=== PATIENT | male | born 1950 | race Caucasian/White ===

== ENCOUNTER → 2016-06-19 | Outpatient (CLI) | payer BC ==
[~2016-06-19] MED LIST: BACT800T5 PO; CIPR500T89 PO; PERC5TAB6 PO; PERCOCET PO
== END ==
LOC: M SMT 11:28
PROVIDERS: ATTEND Urology
DX: Z85.46 Personal history of malignant neoplasm of prostate (principal); Z96.89 Presence of other specified functional implants

== ENCOUNTER → 2016-12-16 | Outpatient (CLI) | payer BC ==
[~2016-12-16] MED LIST changes: +CIPR-249 PO; -CIPR500T89 PO; +NORCOTAB PO; +PERC5TAB12 PO; -PERC5TAB6 PO
== END ==
LOC: M SMT 10:25
PROVIDERS: ATTEND Urology
DX: C61 Malignant neoplasm of prostate (principal)

== ENCOUNTER 2017-01-02 11:51 | Emergency (ER) | payer BC ==
[~2017-01-02] VITALS: Ht 182.9 cm; Wt 106.8 kg
[~2017-01-02 11:51] MED LIST changes: -NORCOTAB PO
[2017-01-02] MEDS ORDERED: NS 1,000 ML IV ONE (13:45)
[2017-01-02 14:32] LABS: BASO % 0.2 % (0.0-1.0); EOS % 0.1 % (0.0-3.0); LARGE UNSTAINED CELL # 0.1 K/mm3 (0.0-0.4); LARGE UNSTAINED CELL % 0.8 % (0.0-4.0); LYMPH # 2.4 K/mm3 (1.5-4.5); LYMPH % 15.9 % (24.0-44.0); MEAN CORPUSCULAR HEMOGLOBIN 28.6 pg (27.0-33.0); MEAN CORPUSCULAR HGB CONC 34.7 g/dl (32.0-36.5); MEAN CORPUSCULAR VOLUME 82.5 fl (80.0-96.0); MONO # 0.4 K/mm3 (0.0-0.8); MONO % 2.9 % (0.0-5.0); NEUTROPHILS % 80.1 % (36.0-66.0); PLATELET COUNT, AUTOMATED 257 k/mm3 (150-450); RED CELL DISTRIBUTION WIDTH 13.4 % (11.5-14.5); WHITE BLOOD COUNT 14.9 K/mm3 (4.0-10.0)
[2017-01-02 14:44] LABS: ALBUMIN 4.1 GM/DL (3.2-5.2); ALBUMIN/GLOBULIN RATIO 1.37 (1.00-1.93); BILIRUBIN,DIRECT 0.2 MG/DL (0.0-0.2); BILIRUBIN,TOTAL 1.1 MG/DL (0.2-1.0); CREATININE FOR GFR 1.35 MG/DL (0.70-1.30); GLOMERULAR FILTRATION RATE 56.6 (>49); POTASSIUM SERUM 4.5 MEQ/L (3.5-5.1); TOTAL PROTEIN 7.1 GM/DL (6.4-8.2)
[2017-01-02] MEDS ORDERED: NORCOTAB PO (14:56)
[2017-01-02] MEDS ORDERED: CIPR-249 PO (14:56)
--- NOTE | 2017-01-02 15:08 | REP ---
CT abdomen and pelvis without IV or oral contrast: Renal stone protocol. History: Flank pain on the right side. Comparison study: December 20, 2013. CT findings: Preliminary digital trains service conductor radiograph demonstrates opaque gallstones in the right upper quadrant and a penile implant prosthesis in the perineum. The lung bases are clear on axial CT images. The liver and the spleen are normal in size and homogeneous in texture. Calcified gallstones are visible in the gallbladder. Gallbladder is not dilated. No pericholecystic inflammation is seen. The pancreas is unremarkable. No adrenal lesion is seen on either side. There is a cyst in the lower pole of the left kidney posteriorly. This measures 2.7 cm in greatest diameter. It is larger than on the prior CT study in 2013. There is an intrarenal calculus in the upper pole of the right kidney measuring 4 mm in greatest diameter. There is mild right-sided hydronephrosis and hydroureter. There is a tiny 3 mm distal ureteral calculus in the intramural segment of the right ureterovesical junction. Urinary bladder is otherwise intact. There is left colonic diverticulosis without CT evidence of diverticulitis. Impression: 3 mm right distal ureteral calculus in the ureterovesical junction with mild right-sided hydronephrosis and hydroureter. 4 mm intrarenal calculus upper pole right kidney. 2.7 cm left renal cyst. Left colon diverticulosis. Cholelithiasis. Signed by Omari Zheng MD 01/03/2017 10:04 A
[2017-01-02 15:16] VITALS: BP 148/99
== END 2017-01-02 15:17 | disposition home or self-care (01) ==
LOC: M ED 11:51
DX: N10 Acute pyelonephritis (principal); N20.1 Calculus of ureter; N13.30 Unspecified hydronephrosis; K80.20 Calculus of gallbladder without cholecystitis without obstruction; R73.09 Other abnormal glucose; R11.2 Nausea with vomiting, unspecified; Z87.442 Personal history of urinary calculi; Z85.46 Personal history of malignant neoplasm of prostate; Z86.73 Personal history of transient ischemic attack (TIA), and cerebral infarction without residual deficits

== ENCOUNTER → 2018-03-19 | Outpatient (CLI) | payer BC ==
[2018-03-19 14:41] LABS: PROSTATIC SPECIFIC AG MONITOR < 0.0 NG/ML (< 4.0)
== END ==
LOC: M SMT 08:15
DX: C61 Malignant neoplasm of prostate (principal)
CPT/HCPCS: 84153

== ENCOUNTER 2018-04-06 08:55 | Day surgery (SDC) | payer BC ==
[2018-04-06] MEDS: NS 1,000 ML IV (06:45)
[2018-04-06] MEDS ORDERED: PROPOFOL 200 MG/20 ML VIAL As Ordered (09:56)
[2018-04-06] MEDS ORDERED: LIDOCAINE 2% INJ 100 MG/5 ML SDV (FOR ANES.) As Ordered (09:56)
== END 2018-04-06 10:57 | disposition home or self-care (01) ==
LOC: M OPP 08:55
DX: Z86.010 Personal history of colon polyps (principal); K64.0 First degree hemorrhoids; K57.30 Diverticulosis of large intestine without perforation or abscess without bleeding; D12.2 Benign neoplasm of ascending colon
CPT/HCPCS: 45385

== ENCOUNTER → 2018-09-15 | Outpatient (CLI) | payer BC ==
[~2018-09-15] MED LIST changes: +HYDR-3715 PO
== END ==
LOC: M SMT 08:41
PROVIDERS: ATTEND Urology
DX: C61 Malignant neoplasm of prostate (principal)

== ENCOUNTER → 2019-03-12 | Outpatient (CLI) | payer BC | LOC: M SMT 08:32 | PROVIDERS: ATTEND Urology | DX: C61 Malignant neoplasm of prostate (principal) ==

== ENCOUNTER → 2020-07-24 | Outpatient (REF) | payer BC ==
[2020-07-24 18:36] LABS: APPEARANCE, URINE CLEAR (CLEAR); BACTERIA, URINE AUTO NEGATIVE (NEGATIVE); BILIRUBIN, URINE AUTO NEGATIVE (NEGATIVE); BLOOD, URINE BLOOD NEGATIVE (NEGATIVE); CALCIUM OXALATE CRYSTALS SMALL; COLOR, URINE YELLOW (YELLOW); GLUCOSE, URINE (UA) AUTO NEGATIVE (NEGATIVE); KETONE, URINE AUTO NEGATIVE (NEGATIVE); LEUKOCYTE ESTERASE, URINE AUTO NEGATIVE (NEGATIVE); MUCUS, URINE SMALL (NEGATIVE); NITRITE, URINE AUTO NEGATIVE (NEGATIVE); PROTEIN, URINE AUTO NEGATIVE (NEGATIVE); RBC, URINE AUTO 1 /HPF (0-3); SPECIFIC GRAVITY URINE AUTO 1.018 (1.002-1.035); SQUAMOUS EPITHELIAL CELL UR AU 0 /HPF (0-6); UROBILINOGEN, URINE AUTO 0.2 mg/dL (0.0-2.0); WBC, URINE AUTO 0 /HPF (0-3)
== END ==
LOC: M SMT 17:09
PROVIDERS: ATTEND Urology
DX: R30.0 Dysuria (principal)

== ENCOUNTER → 2021-02-14 | Outpatient (CLI) | payer BC | LOC: M PLALAB 15:20 | PROVIDERS: ATTEND Urology | DX: C61 Malignant neoplasm of prostate (principal) ==

== ENCOUNTER 2021-03-14 14:14 | Inpatient (IN) | payer BC ==
[~2021-03-14] VITALS: Ht 180.3 cm; Wt 106.8 kg
[~2021-03-14 14:14] MED LIST changes: +BARICITINIB 2MG TABLET (OLUMIANT) FOR EUA PO SCH
--- OUTSIDE RECORDS SUMMARY | 2021-03-14 14:23 | CCD ---
Author Author [facility] Organization [facility] Address Unknown Phone Unavailable Care Team Providers Care Lithographic Photographer Apprentice Name Role Phone Bjorn Cristian Unavailable PROBLEMS Type Condition ICD9-CM Code [id number] Code Onset Dates Condition S tatus W/U Status Risk SNOMED Code Notes Problem Microhematuria 599.72 Active confirmed 0006 Problem Male erectile dysfunction, unspecified N52.9 A ctive confirmed 120957306 Problem Prostate cancer C61 Active confirmed 2549 28165 Problem Acquired absence of organ, other parts of urinary tract V4 5.74 Active confirmed Problem Cancer - Prostate 185 Active confirmed 39 8538207 Problem Erectile dysfunction following radical prostatectomy N52.31 Active confirmed 156221025715071 Problem History of penile implant Z96.89 Active confirmed [id number] ALLERGIES No Known Allergies ENCOUNTERS from 1950 to 2021-02-20 Encounter Location Date Provider Diagnosis [facility] [address] [facility] [address] [phone] [place] [address] 15 Feb, 2021 Cristian Milan Prostate cancer C61 and Erectile dysfunc tion following radical prostatectomy N52.31 IMMUNIZATIONS Vaccine Route Administration Date Status Influenza 6mo & up Fluzone Unknown Jun 29, 2015 Refus ed Influenza 6mo & up Fluzone Unknown Mar 20, 2015 Refus ed Influenza 6mo & up Fluzone Unknown August 11, 2014 Refus ed Influenza 6mo & up Fluzone Unknown Jun 16, 2014 Refus ed SOCIAL HISTORY Tobacco Use: Social History Observation Description Date Details (start date - stop date) Never Smoker Sex Assigned At : Social History Observation Description Sex Assigned At Unknown Sexual Hx: Question Answer Notes Had sex in the last 12 months (vaginal, oral, or anal)? Yes Have you ever had an STD? No Prevention Strategies discussed: Other with Women only Use protection? No Tobacco Use: Question Answer Notes Are you a: never smoker REASON FOR REFERRAL No Information VITAL SIGNS Weight 244 lbs Feb, Weight-kg 110.68 kg Feb, Height 60 in Feb, BMI 47.65 kg/m2 Feb, Heart Rate 67 /min Feb, Respiratory Rate 18 /min Feb, Temperature 97.6 degrees Fahrenheit Feb, Oximetry 97 Feb, Blood pressure systolic 128 mm Hg Feb, Blood pressure diastolic 76 mm Hg Feb, MEDICATIONS Medication SIG (Take, Route, Frequency, Duration) Notes Start Da te End Date Status Tylenol 325 MG 2 capsules as needed Orally every 6 hrs Not-Taking ErecAid Classic as directed Jul, Not-Ta karen Cipro 500 MG 1 tablet Orally every 12 hrs Not-Taking PROCEDURES No Information RESULTS No Results REASON FOR VISIT HX OF PROSTATE CANCER MEDICAL (GENERAL) HISTORY Type Description Date Medical History Hematuria Medical History Hypercholesterolemia Medical History Pre-diabetes Medical History Benign neoplasm colon Medical History Prostate Ca Surgical History Right ankle tendon repair 1974 Surgical History Colonoscopy x3 Surgical History Prostatectomy 06/2014 Surgical History Penile implant 02/28/2016 Hospitalization History surgery related Goals Section No Information Health Concerns No Information MEDICAL EQUIPMENT No Information MENTAL STATUS No Information FUNCTIONAL STATUS No Information ASSESSMENTS Encounter Date Diagnosis Assessment Notes Treatment Notes Treatm ent Clinical Notes Feb, Prostate cancer (ICD-10 - C61) - PSA results discussed - check PSA in 1 yr - f/u in 1 yr Feb, Erectile dysfunction followi ng radical prostatectomy (ICD-10 - N52.31) PLAN OF TREATMENT Treatment Notes Assessment Notes Clinical Notes Prostate cancer - PSA results discus sed- check PSA in 1 yr- f/u in 1 yr Future Test Test Name Order Date PSA MONITOR (HX PROSTATE CA/ABNORMAL PSA) [id number] Next Appt Details 1 Year w/ PSA prior Reason:prostate canc er Provider Name:Cristian Ignacio Bjorn, 03:00:00 PM, [address], , [place], [address], Follow Up:1 Year w/ PSA priorprostate cancer Insurance Providers Payer Name Payer Address Payer Phone Insured Name Patient Relati onship to Insured Coverage Start Date Coverage End Date MIHAELA TORRES [facility] [id number] [facility] [place] [address] CALL,KIRSTIE GALARZA self
--- OUTSIDE RECORDS SUMMARY | 2021-03-14 14:23 | CCD | Continuity of Care Document ---
Author Author Reinaldo Hoyt MD Organization Unknown Address [address] [facility] [address] [place] [address] Phone [phone] Care Team Providers Care Snow Shoveler Name Role Phone Aneesh Hoyt JR, MD AUTM Unavailable Demetrius Siegel MD AUTM [phone] [facility] [place] AUTM Problems Active Problems Provider Date Pure hypercholesterolemia Aneesh Hoyt MD Onset: 12/22 Benign neoplasm of colon Aneesh Hoyt MD Onset: 2010 Family history of malignant neoplasm of gastrointestin al tract Aneesh Hoyt MD Onset: 12/22/2010 Abnormal glucose level Aneesh Hoyt MD Onset: 12/31/19 13 Malignant tumor of prostate Aneesh Hoyt MD Onset: Social History Type Date Description Comments Sex Unknown ETOH Use Occasionally consumes beer ETOH Use Occasionally consumes liquor Tobacco Use Start: Unknown Patient has never smoked Allergies and adverse reactions Description No Known Drug Allergies Medications Active Medications SIG Qnty Indications Ordering Provide r Date No OTC Meds Aneesh Hoyt MD Immunizations CPT Code Status Date Vaccine Lot # [id number] Refused 02/09/2021 Influenza Vaccin e Quadrivalent Preser/Antibiotic Free Im Use 25602 Refused 02/04/2020 Influenza Vaccin e Quadrivalent Preser/Antibiotic Free Im Use Vital Signs Date Vital Result Comment 02/09/2021 7:59am BP Systolic 136 mmHg BP Diastolic 86 mmHg Heart Rate 64 /min Height 70.25 inches 5'10.25" Weight 242.00 lb O2 % BldC Oximetry 98 % BMI (Body Mass Index) 34.5 kg/m2 02/04/2020 8:19am BP Systolic 135 mmHg BP Diastolic 82 mmHg Heart Rate 62 /min Height 70.25 inches 5'10.25" Weight 231.00 lb steel toes O2 % BldC Oximetry 97 % BMI (Body Mass Index) 32.9 kg/m2 Results Test Acquired Date Facility Test Result H/L Range Note Laboratory test finding 02/09/2021 [facility] Desktop Support Technician: [place] [address] [phone] PSA <0.13 ng/mL <4.00 1 Complete Blood Count 02/09/2021 [facility] Desktop Support Technician: [place] [address] [phone] WBC 9.9 x10*3/UL 4.1 - 10.9 RBC 5.79 x10*6/UL 4.20 - 6.30 Hemoglobin 16.2 g/dL 12.0 - 18.0 Hematocrit 46.9 % 37.0 - 51.0 MCV 81.0 fL 80.0 - 97.0 MCH 28.0 pg 26.0 - 32.0 MCHC 34.5 g/dL 31.0 - 38.0 RDW 14.2 % High 11.6 - 13.7 PLT 240 x10*3/UL 140 - 440 MPV 8.9 FL 7.8 - 11.0 Lymph % 42.2 % 10.0 - 58.5 Mid % 6.1 % 1.7 - 9.3 Neut % 51.7 % 37.0 - 92.0 Lymph # 4.1 x10*3/UL 0.6 - 4.1 Mid # 0.7 x10*3/UL High 0.1 - 0.6 Neut # 5.1 x10*3/UL 2.0 - 7.8 Comprehensive Chem Profile 02/09/2021 [facility] [place] Desktop Support Technician: [place] [address] [phone] Glucose 97 mg/dL 74 - 99 2 BUN 22 mg/dL High 7 - 18 Creatinine 1.3 mg/dL 0.6 - 1.3 Sodium 141 mEq/L 136 - 145 Potassium 4.8 mEq/L 3.5 - 5.1 Chloride 105 mEq/L 98 - 107 Carbon Dioxide 30 mEq/L 21 - 32 Calcium 9.3 mg/dL 8.5 - 10.1 Alk. Phosphatase 71 mg/dL 46 - 116 Total Bilirubin 0.9 mg/dL 0.2 - 1.0 Ast (Sgot) 15 U/L 15 - 37 Alt (SGPT) 28 U/L 12 - 78 Albumin 3.9 g/dL 3.4 - 5.0 Total Protein 6.6 g/dL 6.4 - 8.2 A/G Ratio 1.44 CALC 1.00 - 1.90 GFR 55 mL/min Low >60 GFR >= 60 mL/min >60 3 Lipid Profile 02/09/2021 [facility] Desktop Support Technician: [place] [address] [phone] Cholesterol 179 mg/dL 131 - 200 Triglycerides 110 mg/dL 30 - 150 HDL Cholesterol 44 mg/dL 35 - 60 LDL (Calculated) 113 CALC 50 - 159 1 This assay was performed on the Siemens Dimension EXL using the B- Galactosidase/CPRG methodology and should not be compared interchangeably with other methods. The PSA should not be used alone as a screening test for the presence or absence of malignant disease. 2 100-125 mg/dL PRE-DIABET ES/FASTING >126 mg/dL DIABETES/FASTING 3 CHRONIC KIDNEY DISEASE STAGI NG PER NKF STAGE I & II GFR >= 60 NORMAL TO MILDLY DECREASED STAGE III GFR 30-59 MODERATELY DECREASED STAGE IV GFR 15-29 SEVERELY DECREASED STAGE V GFR <15 VERY LITTLE GFR LEFT ESRD GFR <15 ON MANAGER JAVA Procedures Date Code Description Status 02/09/2021 35954 Est Prevent Med (65Yrs&Ovr) Comp leted 02/09/2021 50916 EKG/Interpretation & Report Comp leted 04/06/2018 [id number] Colonoscopy Completed 02/08/2015 [id number] Colonoscopy Completed 07/31/2012 [id number] Colonoscopy Completed 04/04/2010 [id number] Colonoscopy Completed Medical Devices Description No Information Available Encounters Type Date Location Provider Dx Diagnosis Office Visit 02/09/2021 8:00a [facility] Aneesh Hoyt MD Z00.01 Encounter for general adult medical exam w abnormal findings R73.09 Other abnormal glucose E78.00 Pure hypercholesterolemia, u nspecified C61 Malignant neoplasm of prosta te N52.9 Male erectile dysfunction, u nspecified Z80.0 Family history of malignant neoplasm of digestive organs Z86.010 Personal history of colonic polyps E66.09 Other obesity due to excess calories Z68.34 Body mass index [BMI] 34.0-3 4.9, adult Z13.89 Encounter for screening for other disorder Assessments Date Code Description Provider 02/09/2021 Z00.01 Encounter for genera l adult medical examination with abnormal findings Aneesh Hoyt MD 02/09/2021 R73.09 Other abnormal glucose Aneesh Hoyt MD 02/09/2021 E78.00 Pure hypercholesterolemia, unspe cified Aneesh Hoyt MD 02/09/2021 C61 Malignant neoplasm of prostate C tim Hoyt MD 02/09/2021 N52.9 Male erectile dysfunction, unspe cified Aneesh Hoyt MD 02/09/2021 Z80.0 Family history of malignant neop lasm of digestive organs Aneesh Hoyt MD 02/09/2021 Z86.010 Personal history of colonic poly ps Aneesh Hoyt MD 02/09/2021 E66.09 Other obesity due to excess xena tania Aneesh Hoyt MD 02/09/2021 Z68.34 Body mass index [BMI] 34.0-34.9, adult Aneesh Hoyt MD 02/09/2021 Z13.89 Encounter for screening for othe r disorder Aneesh Hoyt MD Plan of Treatment Future Appointment(s):* 02/15/2022 8:00 am - Aneesh Hoyt MD at [facility] 02/09/2021 - Aneesh Hoyt MD* Z00.01 Encounter for general adult medical examination with abnormal findings * R73.09 Other abnormal glucose * E78.00 Pure hypercholesterolemia, unspecified * C61 Malignant neoplasm of prostate * N52.9 Male erectile dysfunction, unspecified * Z80.0 Family history of malignant neoplasm of digestive organs * Z86.010 Personal history of colonic polyps * E66.09 Other obesity due to excess calories * Z68.34 Body mass index [BMI] 34.0-34.9, adult * Z13.89 Encounter for screening for other disorder Functional Status Description No Information Available Mental Status Description No Information Available Referrals Description No Information Available
--- OUTSIDE RECORDS SUMMARY | 2021-03-14 14:23 | CCD | Continuity of Care Document ---
Author Author Reinaldo Hoyt MD Organization Unknown Address [address] [facility] [address] [place] [address] Phone [phone] Care Team Providers Care Dish Room Worker Name Role Phone Aneesh Hoyt JR, MD AUTM Unavailable Demetrius Siegel MD AUTM [phone] [facility] [place] AUTM Problems Active Problems Provider Date Pure [...] CPT Code Status Date Vaccine Lot # [id number] Refused 02/09/2021 Influenza Vaccin e Quadrivalent Preser/Antibiotic Free Im Use 57984 Refused 02/04/2020 Influenza Vaccin e Quadrivalent Preser/Antibiotic Free Im Use Vital Signs Date Vital Result Comment 02/09/2021 7:59am BP Systolic 152 mmHg BP Diastolic 82 mmHg Heart Rate 64 /min Height 70.25 inches 5'10.25" Weight 242.00 lb O2 % BldC Oximetry 98 % BMI (Body Mass Index) 34.5 kg/m2 02/04/2020 8:19am BP Systolic 135 mmHg BP Diastolic 82 mmHg Heart Rate 62 /min Height 70.25 inches 5'10.25" Weight 231.00 lb steel toes O2 % BldC Oximetry 97 % BMI (Body Mass Index) 32.9 kg/m2 Results Description No Information Available Procedures Date Code Description Status 04/06/2018 [id number] Colonoscopy Completed 02/08/2015 [id number] Colonoscopy Completed 07/31/2012 [id number] Colonoscopy Completed 04/04/2010 [id number] Colonoscopy Completed Medical Devices Description No Information Available Encounters Description No Information Available Assessments Description No Information Available Plan of Treatment No Information Available Functional Status Description No Information Available Mental Status Description No Information Available Referrals Refer to Reason for Referral Status Appt Date Zi Up MD CONSULT FOR SCREENING COLONOSCOPY Create d [address] [facility] [address] [phone]
--- OUTSIDE RECORDS SUMMARY | 2021-03-14 14:23 | CCD ---
Author Author [facility] Organization [facility] Address Unknown Phone Unavailable Care Team Providers Care Pipe Bender Name Role Phone Sandy Hoyt MD Unavailable Unavailable Sandy Hoyt MD Unavailable Unavailable Sandy Hoyt MD Unavailable Unavailable Sandy Hoyt MD Unavailable Unavailable Sandy Hoyt MD Unavailable Unavailable Sandy Hoyt MD Unavailable Unavailable Sandy Hoyt MD Unavailable Unavailable Sandy Hoyt MD Unavailable Unavailable Sandy Hoyt MD Unavailable Unavailable Sandy Hoyt MD Unavailable Unavailable Sandy Hoyt MD Unavailable Unavailable Sandy Hoyt MD Unavailable Unavailable Sandy Hoyt MD Unavailable Unavailable Sandy Hoyt MD Unavailable Unavailable Sandy Hoyt MD Unavailable Unavailable Sandy Hoyt MD Unavailable Unavailable Sandy Hoyt MD Unavailable Unavailable Sandy Hoyt MD Unavailable Unavailable Sandy Hoyt MD Unavailable Unavailable Sandy Hoyt MD Unavailable Unavailable Sandy Hoyt MD Unavailable Unavailable Sandy Hoyt MD Unavailable Unavailable Sandy Hoyt MD Unavailable Unavailable Sandy Hoyt MD Unavailable Unavailable Sandy Hoyt MD Unavailable Unavailable Sandy Hoyt MD Unavailable Unavailable Sandy Hoyt MD Unavailable Unavailable GuaynaboSandy MD Unavailable Unavailable GuaynaboSandy MD Unavailable Unavailable GuaynaboSandy MD Unavailable Unavailable GuaynaboSandy MD Unavailable Unavailable GuaynaboSandy MD Unavailable Unavailable EvelinaSandy MD Unavailable Unavailable GuaynaboSandy MD Unavailable Unavailable GuaynaboSandy MD Unavailable Unavailable EvelinaSandy MD Unavailable Unavailable GuaynaboSandy MD Unavailable Unavailable GuaynaboSandy MD Unavailable Unavailable GuaynaboSandy MD Unavailable Unavailable EvelinaSandy MD Unavailable Unavailable GuaynaboSandy MD Unavailable Unavailable EvelinaSandy MD Unavailable Unavailable EvelinaSandy MD Unavailable Unavailable EvelinaSandy MD Unavailable Unavailable EvleinaSandy MD Unavailable Unavailable EvelinaSandy MD Unavailable Unavailable EvelinaSandy MD Unavailable Unavailable GuaynaboSandy MD Unavailable Unavailable EvelinaSandy MD Unavailable Unavailable GuaynaboSandy MD Unavailable Unavailable GuaynaboSandy MD Unavailable Unavailable EvelinaSandy MD Unavailable Unavailable EvelinaSandy MD Unavailable Unavailable EvelinaSandy MD Unavailable Unavailable EvelinaSandy MD Unavailable Unavailable EvelinaSandy MD Unavailable Unavailable EvelinaSandy MD Unavailable Unavailable GuaynaboSandy MD Unavailable Unavailable EvelinaSandy MD Unavailable Unavailable EvelinaSandy MD Unavailable Unavailable GuaynaboSandy MD Unavailable Unavailable EvelinaSandy doshi MD Unavailable Unavailable EvelinaSandy doshi MD Unavailable Unavailable GuaynaboSandy MD Unavailable Unavailable EvelinaSandy MD Unavailable Unavailable GuaynaboSandy doshi MD Unavailable Unavailable EvelinaSandy MD Unavailable Unavailable EvelinaSandy doshi MD Unavailable Unavailable GuaynaboSandy doshi MD Unavailable Unavailable GuaynaboSandy doshi MD Unavailable Unavailable GuaynaboSandy MD Unavailable Unavailable EvelinaSandy MD Unavailable Unavailable EvelinaSandy MD Unavailable Unavailable EvelinaSandy MD Unavailable Unavailable GuaynaboSandy MD Unavailable Unavailable EvelinaSandy MD Unavailable Unavailable GuaynaboSandy MD Unavailable Unavailable EvelinaSandy MD Unavailable Unavailable EvelinaSandy MD Unavailable Unavailable EvelinaSandy MD Unavailable Unavailable EvelinaSandy MD Unavailable Unavailable GuaynaboSandy MD Unavailable Unavailable GuaynaboSandy MD Unavailable Unavailable Sandy Hoyt MD Unavailable Unavailable Sandy Hoyt MD Unavailable Unavailable Sandy Hoyt MD Unavailable Unavailable Re-disclosure Warning The records that you are about to access may contain information from federally-assisted alcohol or drug abuse programs. If such information is present, then the following federally mandated warning applies: This information has been disclosed to you from records protected by federal confidentiality rules (42 CFR part 2). The federal rules prohibit you from making any further disclosure of this information unless further disclosure is expressly permitted by the written consent of the person to whom it pertains or as otherwise permitted by 42 CFR part 2. A general authorization for the release of medical or other information is NOT sufficient for this purpose. The Federal rules restrict any use of the information to criminally investigate or prosecute any alcohol or drug abuse patient.The records that you are about to access may contain highly sensitive health information, the redisclosure of which is protected by Article 27-F of the [facility] Public Health law. If you continue you may have access to information: Regarding HIV / AIDS; Provided by facilities licensed or operated by the [facility] Office of Mental Health; or Provided by the [facility] Office for People With Developmental Disabilities. If such information is present, then the following [facility] mandated warning applies: This information has been disclosed to you from confidential records which are protected by state law. State law prohibits you from making any further disclosure of this information without the specific written consent of the person to whom it pertains, or as otherwise permitted by law. Any unauthorized further disclosure in violation of state law may result in a fine or mcfp sentence or both. A general authorization for the release of medical or other information is NOT sufficient authorization for further disc losure. Family History Family Member Name Family Member Gender Family Member Status Date o f Status Description Data Source(s) Unknown Female Problem [facility] ([facility]) Unknown Female Problem [facility] ([facility]) Unknown Female Problem MED[facility] ([facility]) Encounters Encounter Providers Location Date Indications Data Source(s ) [place] [address] [facility] [address] 02/16/2021 12:00:00 AM EDT eCW1 ([facility]) Outpatient Attender: Aneesh Danielle 1 08:00:00 AM EDT MEDENT ([facility] ) Unknown [address] [facility] [place] [address] 07/25/2020 12:00:00 AM EDT eCW1 ([facility]) Unknown [address] [facility] [place] [address] 07/24/2020 12:00:00 AM EDT eCW1 ([facility]) [facility] [address] [place] [address] 03/20/2020 12:00:00 AM EST eCW1 ([facility]) Outpatient [address] [facility] [address] 02/17/2020 12:00:00 AM EDT eCW1 ([facility]) Outpatient Attender: Aneesh Danielle 1 08:20:00 AM EDT MEDENT ([facility] ) Immunizations Vaccine Date Status Description Data Source(s) Influenza, injectable, MDCK, preservative free, apryl valent 02/09/2021 08:01:00 AM EDT completed [facility] Influenza, injectable, MDCK, preservative free, apryl valent 02/04/2020 08:21:00 AM EDT completed MEDENT ([facility]) Medications No Information Insurance Providers Payer name Policy type / Coverage type Policy ID Covered republican ID Covered republican's relationship to vega Policy Vega Plan Information BS [place] Medig[place] Part B [id number] Self [id number] [place] B [id number] Self BS [place] Tr[employer]/[place] Commercial [id number] Self 802 BS [place] [employer]/[place] Commercial [id number] Self [id number] [place] Tr[place] Commercial [id number] Self 802 BS [place] Trad/MoneyMail Commercial [id number] Self [id number] [place] Commercial [id number] Self [place] Commercial [id number] Self Y [id number] BS [place] Trad/Money[employer] Commercial [id number] Self 802 BS [place] [employer] Commercial [id number] Self [id number] BS [place] [employer] Commercial [id number] Self [id number] BS [place] Tr[employer] Commercial [id number] Self 802 [place]/307 [id number] SP [id number] [place] 302/307 [id number] SP [id number] [place] 302/307 [id number] SP [id number] [place] 302/307 [id number] SP [id number] [place] 302/307 [id number] SP [id number] [place] P[place] 302/307 [id number] SP [id number] [place] PPO 302/307 [id number] SP [id number] ANSI-Commercial [id number] BS [place] Trad/[employer] Commercial [id number] Self [id number] [place] PPO 302/307 [id number] SP [id number] MEDICAID UNAVAILABLE UNAVAILA BLE BCBS OF [place] 306/806 [id number] SP [id number] BS [place] Trad/MX Commercial [id number] Self 802 BCBS [place] 306/806 [id number] SP [id number] EXCELLUS BCBS B [id number] S [id number] [place] BCBS B [id number] S [id number] BC[place] 306/806 [id number] SP [id number] Problems, Conditions, and Diagnoses Code Display Name Description Problem Type Effective Dates Data Source(s) C61 Prostate cancer Prostate cancer Problem 02/16/2021 12:0 0:00 AM EDT eCW1 ([facility]) C61 Malignant tumor of prostate Malignant neoplasm of pros goins Problem 02/17/2020 12:00:00 AM EDT eCW1 ([facility]) Surgeries/Procedures Procedure Description Date Indications Data Source(s) ECG ROUTINE ECG W/LEAST 12 LDS W/I&R 02/09/2021 12:00: 00 AM EDT [facility]) PERIODIC PREVENTIVE MED EST PATIENT 65YRS&> 02/09/2021 12:00:00 AM EDT [facility] ([facility]) ECG ROUTINE ECG W/LEAST 12 LDS W/I&R 02/04/2020 12:00: 00 AM EDT [facility] ([facility]) Results ID Date Data Source [id number] 02/09/2021 08:31:00 AM EDT MEDENT ([facility]) Name Value Range Interpretation Code Description Data Charleen rce(s) Supporting Document(s) Prostate specific Ag [Mass/volume] in Serum or Plasma Laboratory test result [facility] ([facility]) This assay was performed on the Siemens Dimension EXL using the B- Galactosidase/CPRG methodology and should not be compared interchangeably with other methods. The PSA should not be used alone as a screening test for the presence or absence of malignant disease. ID Date Data Source [id number] 02/09/2021 08:30:00 AM EDT MEDENT ([facility]) Name Value Range Interpretation Code Description Data Charleen rce(s) Supporting Document(s) Cholesterol [Mass/volume] in Serum or Plasma 179 mg/dL 131-200 [facility] ([facility]) Cholesterol in HDL [Mass/volume] in Serum or Plasma 44 mg/dL 35-60 [facility] ([facility]) Triglyceride [Mass/volume] in Serum or Plasma 110 mg/dL 30-150 [facility] ([facility]) Cholesterol in LDL [Mass/volume] in Serum or Plasma by calcu lation 113 CALC 50-159 [facility] ([facility]) ID Date Data Source [id number] 02/09/2021 08:30:00 AM EDT MED[facility] ([facility]) Name Value Range Interpretation Code Description Data Charleen rce(s) Supporting Document(s) Glucose [Mass/volume] in Serum or Plasma 97 mg/dL 74-99 [facility] ([facility]) 100-125 mg/dL PRE-DIABETES/FASTING >126 mg/dL DIABETES/FASTING Creatinine 1.3 mg/dL 0.6-1.3 [facility]) Urea nitrogen [Mass/volume] in Serum or Plasma 22 mg/dL 7-18 [facility] ([facility]) Potassium [Moles/volume] in Serum or Plasma 4.8 meq/L 3.5-5.1 [facility] ([facility]) Sodium [Moles/volume] in Serum or Plasma 141 meq/L 136-145 [facility] ([facility]) Chloride [Moles/volume] in Serum or Plasma 105 meq/L 98-107 [facility] ([facility]) Calcium [Mass/volume] in Serum or Plasma 9.3 mg/dL 8.5-10.1 [facility] ([facility]) Carbon dioxide, total [Moles/volume] in Serum or Plasma 30 meq/L 21 -32 [facility] ([facility]) Alkaline phosphatase isoenzyme [Units/volume] in Serum or Pl asma 71 mg/dL 46-116 [facility] ([facility]) Total Bilirubin 0.9 mg/dL 0.2-1.0 [facility] ([facility]) Alanine aminotransferase [Enzymatic activity/volume] in Seru m or Plasma 28 U/L 12-78 [facility] ([facility]) Aspartate aminotransferase [Enzymatic activity/volume] in Serum or Plasma 15 U/L 15-37 [facility] ([facility] ) A/G Ratio 1.44 CALC 1.00-1.90 [facility]) Albumin [Mass/volume] in Serum or Plasma 3.9 g/dL 3.4-5.0 [facility] ([facility]) Proteinase 3 Ab [Units/volume] in Serum 6.6 g/dL 6.4-8.2 [facility] ([facility]) Glomerular filtration rate/1.73 sq M pre dicted among blacks [Volume Rate/Area] in Serum or Plasma by Creatinine-based formula (MDRD) Laboratory test result [facility]) <content>CHRONIC KIDNEY DISEASE STAGING PER NKF</content>
<content></content>
<content>STAGE I & II GFR >= 60 NORMAL TO MILDLY DECREASED</content>
<content>STAGE III GFR 30-59 MODERATELY DECREASED</content>
<content>STAGE IV GFR 15-29 SEVERELY DECREASED</content>
<content>STAGE V GFR <15 VERY LITTLE GFR LEFT</content>
<content>ESRD GFR <15 ON FORENSIC STRUCTURAL ENGINEER</content>
<content></content> Glomerular filtration rate/1.73 sq M pre dicted among non-blacks [Volume Rate/Area] in Serum or Plasma by Creatinine-based formula (MDRD) 55 mL/min [facility] ([facility]) ID Date Data Source [id number] 02/09/2021 08:30:00 AM EDT [facility] ([facility]) Name Value Range Interpretation Code Description Data Charleen rce(s) Supporting Document(s) Leukocytes [#/volume] in Blood by Automated count 9.9 x10*3/UL 4.1-10 .9 [facility]) Hemoglobin [Mass/volume] in Blood 16.2 g/dL 12.0-18.0 [facility] Erythrocytes [#/volume] in Blood by Automated count 5.79 x10*6/UL 4.2 0-6.30 [facility] ([facility]) Hematocrit [Volume Fraction] of Blood by Automated count 46.9 % 3 7.0-51.0 [facility] ([facility]) MCH 28.0 pg 26.0-32.0 [facility] ([facility]) MCV 81.0 fL 80.0-97.0 [facility] ([facility]) MCHC 34.5 g/dL 31.0-38.0 [facility] ([facility]) Platelets [#/volume] in Blood by Automated count 240 x10*3/UL 140-440 [facility] ([facility]) Erythrocyte distribution width [Ratio] by Automated count 14.2 % 11.6-13.7 [facility] ([facility]) MPV 8.9 FL 7.8-11.0 [facility] ([facility]) Neut % 51.7 % 37.0-92.0 [facility] ([facility]) Lymph % 42.2 % 10.0-58.5 [facility] ([facility]) Mid % 6.1 % 1.7-9.3 [facility] ([facility]) Lymph # 4.1 x10*3/UL 0.6-4.1 [facility] ([facility]) Mid # 0.7 x10*3/UL 0.1-0.6 [facility] ([facility]) Neut # 5.1 x10*3/UL 2.0-7.8 [facility] ID Date Data Source [id number] 02/04/2020 08:51:00 AM EDT [facility] ([facility]) Name Value Range Interpretation Code Description Data Charleen rce(s) Supporting Document(s) Prostate specific Ag [Mass/volume] in Serum or Plasma Laboratory test result [facility] ([facility]) This assay was performed on the Siemens Dimension EXL using the B- Galactosidase/CPRG methodology and should not be compared interchangeably with other methods. The PSA should not be used alone as a screening test for the presence or absence of malignant disease. ID Date Data Source [id number] 02/04/2020 08:51:00 AM EDT [facility] ([facility]) Name Value Range Interpretation Code Description Data Charleen rce(s) Supporting Document(s) Cholesterol [Mass/volume] in Serum or Plasma 247 mg/dL 131-200 [facility] ([facility]) Cholesterol in HDL [Mass/volume] in Serum or Plasma 48 mg/dL 35-60 [facility] ([facility]) Triglyceride [Mass/volume] in Serum or Plasma 173 mg/dL 30-150 [facility] ([facility]) Cholesterol in LDL [Mass/volume] in Serum or Plasma by calcu lation 164 CALC 50-159 [facility]) ID Date Data Source [id number] 02/04/2020 08:51:00 AM EDT [facility] ([facility]) Name Value Range Interpretation Code Description Data Charleen rce(s) Supporting Document(s) Glucose [Mass/volume] in Serum or Plasma 103 mg/dL 74-99 [facility] ([facility]) 100-125 mg/dL PRE-DIABETES/FASTING >126 mg/dL DIABETES/FASTING Urea nitrogen [Mass/volume] in Serum or Plasma 23 mg/dL 7-18 [facility] ([facility]) Creatinine 1.5 mg/dL 0.6-1.3 [facility]) Sodium [Moles/volume] in Serum or Plasma 137 meq/L 136-145 [facility] ([facility]) Chloride [Moles/volume] in Serum or Plasma 101 meq/L 98-107 [facility] ([facility]) Potassium [Moles/volume] in Serum or Plasma 4.5 meq/L 3.5-5.1 [facility] ([facility]) Carbon dioxide, total [Moles/volume] in Serum or Plasma 26 meq/L 21 -32 [facility] ([facility]) Calcium [Mass/volume] in Serum or Plasma 9.2 mg/dL 8.5-10.1 [facility] ([facility]) Total Bilirubin 1.2 mg/dL 0.2-1.0 [facility] ([facility]) Alkaline phosphatase isoenzyme [Units/volume] in Serum or Pl asma 70 mg/dL 46-116 [facility] ([facility]) Aspartate aminotransferase [Enzymatic activity/volume] in Serum or Plasma 20 U/L 15-37 [facility] ([facility] ) Alanine aminotransferase [Enzymatic activity/volume] in Seru m or Plasma 32 U/L 12-78 [facility] ([facility]) A/G Ratio 1.28 CALC 1.00-1.90 [facility]) Proteinase 3 Ab [Units/volume] in Serum 7.3 g/dL 6.4-8.2 [facility] ([facility]) Albumin [Mass/volume] in Serum or Plasma 4.1 g/dL 3.4-5.0 [facility] ([facility]) Glomerular filtration rate/1.73 sq M pre dicted among blacks [Volume Rate/Area] in Serum or Plasma by Creatinine-based formula (MDRD) 56 mL/min [facility]) <content>CHRONIC KIDNEY DISEASE STAGING PER NKF</content>
<content></content>
<content>STAGE I & II GFR >= 60 NORMAL TO MILDLY DECREASED</content>
<content>STAGE III GFR 30-59 MODERATELY DECREASED</content>
<content>STAGE IV GFR 15-29 SEVERELY DECREASED</content>
<content>STAGE V GFR <15 VERY LITTLE GFR LEFT</content>
<content>ESRD GFR <15 ON FORENSIC STRUCTURAL ENGINEER</content>
<content></content> Glomerular filtration rate/1.73 sq M pre dicted among non-blacks [Volume Rate/Area] in Serum or Plasma by Creatinine-based formula (MDRD) 47 mL/min [facility]) ID Date Data Source [id number] 02/04/2020 08:51:00 AM EDT [facility] ([facility]) Name Value Range Interpretation Code Description Data Charleen rce(s) Supporting Document(s) Leukocytes [#/volume] in Blood by Automated count 9.7 x10*3/UL 4.1-10 .9 [facility] ([facility]) Erythrocytes [#/volume] in Blood by Automated count 6.12 x10*6/UL 4.2 0-6.30 [facility] ([facility]) Hemoglobin [Mass/volume] in Blood 17.0 g/dL 12.0-18.0 [facility] ([facility]) MCH 27.8 pg 26.0-32.0 [facility] ([facility]) Hematocrit [Volume Fraction] of Blood by Automated count 48.6 % 3 7.0-51.0 [facility] ([facility]) MCV 79.4 fL 80.0-97.0 [facility] ([facility]) MCHC 35.0 g/dL 31.0-38.0 [facility] ([facility]) Erythrocyte distribution width [Ratio] by Automated count 13.7 % 11.6-13.7 [facility] ([facility]) MPV 8.9 FL 7.8-11.0 [facility] ([facility]) Platelets [#/volume] in Blood by Automated count 241 x10*3/UL 140-440 [facility] ([facility]) Mid % 7.3 % 1.7-9.3 [facility] ([facility]) Lymph % 40.7 % 10.0-58.5 [facility] ([facility]) Lymph # 3.9 x10*3/UL 0.6-4.1 [facility] ([facility]) Neut % 52.0 % 37.0-92.0 [facility]) Neut # 5.0 x10*3/UL 2.0-7.8 [facility] ([facility]) Mid # 0.8 x10*3/UL 0.1-0.6 [facility] ([facility]) Procedure Social History Code Duration Value Status Description Data Source(s ) Smoking 02/16/2021 12:00:00 AM EDT Never Smoker completed Never S jacinto eCW1 ([facility]) Smoking 02/17/2020 12:00:00 AM EDT Never Smoker completed Never S moker eCW1 ([facility]) Smoking 02/17/2020 12:00:00 AM EDT Never Smoker completed Never S moker eCW1 ([facility]) Smoking 02/17/2020 12:00:00 AM EDT Never Smoker completed Never S moker eCW1 ([facility]) Vital Signs ID Date Data Source [id number] Name Value Range Interpretation Code Description Data Source(s) Body weight 244 [lb_av] 244 [lb_av] eCW1 ([facility]) Body weight 110.68 kg 110.68 kg eCW1 ([facility]) Body height 60 [in_i] 60 [in_i] eCW1 ([facility]) Body mass index (BMI) [Ratio] 47.65 kg/m2 47.65 kg/m2 W1 ([facility]) Heart rate 67 /min 67 /min eCW1 ([facility]) Respiratory rate 18 /min 18 /min eCW1 ([facility]) Body temperature 97.6 [degF] 97.6 [degF] eCW1 ( [facility]) Systolic blood pressure 128 mm[Hg] 128 mm[Hg] e CW1 ([facility]) Diastolic blood pressure 76 mm[Hg] 76 mm[Hg] eCW1 ([facility]) Body weight 242.00 [lb_av] 242.00 [lb_av] MEDEN T ([facility]) Oxygen saturation in Arterial blood by Pulse oximetry 98 % 98 % MED[facility] ([facility]) Body mass index (BMI) [Ratio] 34.5 kg/m2 34.5 k g/m2 MED[facility] ([facility]) Systolic blood pressure 136 mm[Hg] 136 mm[Hg] M EDENT ([facility]) Diastolic blood pressure 86 mm[Hg] 86 mm[Hg] [facility] ([facility]) Heart rate 64 /min 64 /min MED[facility] ([facility]) Body height 70.25 [in_i] 70.25 [in_i] MED[facility] ([facility]) 5'10.25" Body weight 244 [lb_av] 244 [lb_av] eCW1 ([facility]) Body height 60 [in_i] 60 [in_i] eCW1 ([facility]) Body mass index (BMI) [Ratio] 47.65 kg/m2 47.65 kg/m2 eCW1 ([facility]) Heart rate 84 /min 84 /min eCW1 ([facility]) Respiratory rate 18 /min 18 /min eCW1 ([facility]) Body temperature 97.9 [degF] 97.9 [degF] eCW1 ( [facility]) Systolic blood pressure 118 mm[Hg] 118 mm[Hg] e CW1 ([facility]) Diastolic blood pressure mm[Hg] eCW1 ([facility]) Systolic blood pressure 135 mm[Hg] 135 mm[Hg] M EDENT ([facility]) Diastolic blood pressure 82 mm[Hg] 82 mm[Hg] MED[facility] ([facility]) Heart rate 62 /min 62 /min MED[facility] ([facility]) Body height 70.25 [in_i] 70.25 [in_i] MED[facility] ([facility]) 5'10.25" Body weight 231.00 [lb_av] 231.00 [lb_av] MEDEN T ([facility]) steel toes Oxygen saturation in Arterial blood by Pulse oximetry 97 % 97 % MEDKRISTI ([facility]) Body mass index (BMI) [Ratio] 32.9 kg/m2 32.9 k g/m2 MEDENT ([facility])
--- OUTSIDE RECORDS SUMMARY | 2021-03-14 15:35 | CCD ---
Author Author [facility] Organization [facility] Address Unknown Phone Unavailable Care Team Providers Care Sales Development Specialist Name Role Phone Sandy Hoyt MD Unavailable [...] Unavailable Unavailable Sandy Hoyt MD Unavailable Unavailable IrvineSandy MD Unavailable Unavailable IrvineSandy MD Unavailable Unavailable IrvineSandy MD Unavailable Unavailable IrvineSandy MD Unavailable Unavailable IrvineSandy MD Unavailable Unavailable EvelinaSandy MD Unavailable Unavailable IrvineSandy MD Unavailable Unavailable IrvineSandy MD Unavailable Unavailable EvelinaSandy MD Unavailable Unavailable IrvineSandy MD Unavailable Unavailable IrvineSandy MD Unavailable Unavailable IrvineSandy MD Unavailable Unavailable EvelinaSandy MD Unavailable Unavailable IrvineSandy MD Unavailable Unavailable EvelinaSandy MD Unavailable Unavailable EvelinaSandy MD Unavailable Unavailable EvelinaSandy MD Unavailable Unavailable EvelinaSandy MD Unavailable Unavailable EvelinaSandy MD Unavailable Unavailable EvelinaSandy MD Unavailable Unavailable IrvineSandy MD Unavailable Unavailable EvelinaSandy MD Unavailable Unavailable IrvineSandy MD Unavailable Unavailable IrvineSandy MD Unavailable Unavailable EvelinaSandy MD Unavailable Unavailable EvelinaSandy MD Unavailable Unavailable EvelinaSandy MD Unavailable Unavailable EvelinaSandy MD Unavailable Unavailable EvelinaSandy MD Unavailable Unavailable EvelinaSandy MD Unavailable Unavailable IrvineSandy MD Unavailable Unavailable EvelinaSandy MD Unavailable Unavailable EvelinaSandy MD Unavailable Unavailable IrvineSandy MD Unavailable Unavailable EvelinaSandy doshi MD Unavailable Unavailable EvelinaSandy doshi MD Unavailable Unavailable IrvineSandy MD Unavailable Unavailable EvelinaSandy MD Unavailable Unavailable IrvineSandy doshi MD Unavailable Unavailable EvelinaSandy MD Unavailable Unavailable EvelinaSandy dohsi MD Unavailable Unavailable IrvineSandy doshi MD Unavailable Unavailable IrvineSandy doshi MD Unavailable Unavailable IrvineSandy MD Unavailable Unavailable EvelinaSandy MD Unavailable Unavailable EvleinaSandy MD Unavailable Unavailable EvelinaSandy MD Unavailable Unavailable IrvineSandy MD Unavailable Unavailable EvelinaSandy MD Unavailable Unavailable IrvineSandy MD Unavailable Unavailable EvelinaSandy MD Unavailable Unavailable EvelinaSandy MD Unavailable Unavailable EvelinaSandy MD Unavailable Unavailable EvelinaSandy MD Unavailable Unavailable IrvineSandy MD Unavailable Unavailable IrvineSandy MD Unavailable Unavailable Sandy Hoyt MD Unavailable [...] is protected by Article 27-F of the [facility] Public Health law. If you continue you may have access to information: Regarding HIV / AIDS; Provided by facilities licensed or operated by the [facility] Office of Mental Health; or Provided by the [facility] Office for People With Developmental Disabilities. If such information is present, then the following [facility] mandated warning applies: This information has been [...] law may result in a fine or snf sentence or both. A general authorization for [...] Date Indications Data Source(s ) [place] [address] [facility] [place] [address] 02/16/2021 12:00:00 AM EDT eCW1 ([facility]) Outpatient Attender: Aneesh Danielle 1 08:00:00 AM EDT MED[facility] ([facility] ) Unknown [address] [facility] [place] [address] 07/25/2020 12:00:00 AM EDT eCW1 ([facility]) Unknown [address] [facility] [place] [address] 07/24/2020 12:00:00 AM EDT eCW1 ([facility]) [facility] [address] [place] [address] 03/20/2020 12:00:00 AM EST eCW1 ([facility]) Outpatient [address] [facility] [address] 02/17/2020 12:00:00 AM EDT eCW1 ([facility]) Outpatient Attender: Aneesh Danielle 1 08:20:00 AM EDT [facility] ([facility] ) Immunizations Vaccine Date Status Description Data Source(s) Influenza, injectable, MDCK, preservative free, apryl valent 02/09/2021 08:01:00 AM EDT completed [facility] Influenza, injectable, MDCK, preservative free, apryl valent 02/04/2020 08:21:00 AM EDT completed MEDENT ([facility]) Medications No Information Insurance Providers Payer name Policy type / Coverage type Policy ID Covered democrat ID Covered democrat's relationship to vega Policy Vega Plan Information [place] Med[place] B [id number] Self [id number] [place] B [id number] Self BS [place] Trad/MX Commercial [id number] Self 802 BS [place] Trad/MX Commercial [id number] Self [id number] [place] Trad/MX Commercial [id number] Self 802 BS [place] Trad/RegisterPatient Commercial [id number] Self [id number] BS Of [place] Commercial [id number] Self BS [place] Commercial [id number] Self [id number] BS [place] Trad/RegisterPatient Commercial [id number] Self 802 BS [place] Trad/RegisterPatient Commercial [id number] Self [id number] BS [place] Trad/RegisterPatient Commercial [id number] Self [id number] BS [place] Trad/RegisterPatient Commercial [id number] Self 802 [place] 302/307 [id number] SP [id number] [place] 302/307 [id number] SP [id number] [place] 302/307 [id number] SP [id number] [place] 302/307 [id number] SP [id number] [place] 302/307 [id number] SP [id number] [place] 302/307 [id number] SP [id number] [place] 302/307 [id number] SP [id number] ANSI-Commercial [id number] BS [place] Trad/RegisterPatient Commercial [id number] Self [id number] [place] 302/307 [id number] SP [id number] MEDICAID UNAVAILABLE UNAVAILA BLE BCBS [place] 306/806 [id number] SP [id number] BS [place] Trad/MX Commercial [id number] Self 802 [place] 306/806 [id number] SP [id number] EXCELLUS BCBS B [id number] S [id number] EXCELLUS BCBS B [id number] S [id number] [place] 306/806 [id number] SP [id number] Problems, Conditions, and Diagnoses Code Display Name Description Problem Type Effective Dates Data Source(s) C61 Prostate cancer Prostate cancer Problem 02/16/2021 12:0 0:00 AM EDT eCW1 ([facility]) C61 Malignant tumor of prostate Malignant neoplasm of pros goins Problem 02/17/2020 12:00:00 AM EDT eCW1 ([facility]) Surgeries/Procedures Procedure Description Date Indications Data Source(s) ECG ROUTINE ECG W/LEAST 12 LDS W/I&R 02/09/2021 12:00: 00 AM EDT [facility] ([facility]) PERIODIC PREVENTIVE MED EST PATIENT 65YRS&> 02/09/2021 12:00:00 AM EDT [facility] ([facility]) ECG ROUTINE ECG W/LEAST 12 LDS W/I&R 02/04/2020 12:00: 00 AM EDT [facility] ([facility]) Results ID Date Data Source [id number] 02/09/2021 08:31:00 AM EDT [facility] ([facility]) Name Value Range Interpretation Code Description Data Charleen rce(s) Supporting Document(s) Prostate specific Ag [Mass/volume] in Serum or Plasma Laboratory test result [facility] ([facility]) This assay was performed on the Siemens Dimension EXL using the B- Galactosidase/CPRG methodology and should not be compared interchangeably with other methods. The PSA should not be used alone as a screening test for the presence or absence of malignant disease. ID Date Data Source [id number] 02/09/2021 08:30:00 AM EDT [facility] ([facility]) Name Value Range Interpretation Code Description Data Charleen rce(s) Supporting Document(s) Cholesterol [Mass/volume] in Serum or Plasma 179 mg/dL 131-200 [facility] ([facility]) Cholesterol in HDL [Mass/volume] in Serum or Plasma 44 mg/dL 35-60 [facility] ([facility]) Triglyceride [Mass/volume] in Serum or Plasma 110 mg/dL 30-150 [facility] ([facility]) Cholesterol in LDL [Mass/volume] in Serum or Plasma by calcu lation 113 CALC 50-159 [facility] ([facility]) ID Date Data Source [id number] 02/09/2021 08:30:00 AM EDT [facility] ([facility]) Name Value Range Interpretation Code Description Data Charleen rce(s) Supporting Document(s) Glucose [Mass/volume] in Serum or Plasma 97 mg/dL 74-99 [facility] ([facility]) 100-125 mg/dL PRE-DIABETES/FASTING >126 mg/dL DIABETES/FASTING Creatinine 1.3 mg/dL 0.6-1.3 [facility]) Urea nitrogen [Mass/volume] in Serum or Plasma 22 mg/dL 7-18 [facility] ([facility]) Potassium [Moles/volume] in Serum or Plasma 4.8 meq/L 3.5-5.1 [facility] ([facility]) Sodium [Moles/volume] in Serum or Plasma 141 meq/L 136-145 [facility] ([facility]) Chloride [Moles/volume] in Serum or Plasma 105 meq/L 98-107 [facility] ([facility]) Calcium [Mass/volume] in Serum or Plasma 9.3 mg/dL 8.5-10.1 [facility] ([facility]) Carbon dioxide, total [Moles/volume] in Serum or Plasma 30 meq/L 21 -32 [facility] ([facility]) Alkaline phosphatase isoenzyme [Units/volume] in Serum or Pl asma 71 mg/dL 46-116 [facility] ([facility]) Total Bilirubin 0.9 mg/dL 0.2-1.0 [facility] ([facility]) Alanine aminotransferase [Enzymatic activity/volume] in Seru m or Plasma 28 U/L 12-78 [facility] ([facility]) Aspartate aminotransferase [Enzymatic activity/volume] in Serum or Plasma 15 U/L 15-37 [facility] ([facility] ) A/G Ratio 1.44 CALC 1.00-1.90 [facility] Albumin [Mass/volume] in Serum or Plasma 3.9 g/dL 3.4-5.0 [facility] ([facility]) Proteinase 3 Ab [Units/volume] in Serum 6.6 g/dL 6.4-8.2 [facility] ([facility]) Glomerular filtration rate/1.73 sq M pre dicted among blacks [Volume Rate/Area] in Serum or Plasma by Creatinine-based formula (MDRD) Laboratory test result [facility]) <content>CHRONIC KIDNEY DISEASE STAGING PER NKF</content>
<content></content>
<content>STAGE I & II GFR >= 60 NORMAL TO MILDLY DECREASED</content>
<content>STAGE III GFR 30-59 MODERATELY DECREASED</content>
<content>STAGE IV GFR 15-29 SEVERELY DECREASED</content>
<content>STAGE V GFR <15 VERY LITTLE GFR LEFT</content>
<content>ESRD GFR <15 ON SALES BRANCH MANAGER</content>
<content></content> Glomerular filtration rate/1.73 sq M pre dicted among non-blacks [Volume Rate/Area] in Serum or Plasma by Creatinine-based formula (MDRD) 55 mL/min [facility] ([facility]) ID Date Data Source [id number] 02/09/2021 08:30:00 AM EDT [facility] ([facility]) Name Value Range Interpretation Code Description Data Charleen rce(s) Supporting Document(s) Leukocytes [#/volume] in Blood by Automated count 9.9 x10*3/UL 4.1-10 .9 [facility] Hemoglobin [Mass/volume] in Blood 16.2 g/dL 12.0-18.0 [facility]) Erythrocytes [#/volume] in Blood by Automated count 5.79 x10*6/UL 4.2 0-6.30 [facility] ([facility]) Hematocrit [Volume Fraction] of Blood by Automated count 46.9 % 3 7.0-51.0 [facility] ([facility]) MCH 28.0 pg 26.0-32.0 [facility]) MCV 81.0 fL 80.0-97.0 [facility] ([facility]) MCHC 34.5 g/dL 31.0-38.0 [facility] ([facility]) Platelets [#/volume] in Blood by Automated count 240 x10*3/UL 140-440 [facility] ([facility]) Erythrocyte distribution width [Ratio] by Automated count 14.2 % 11.6-13.7 [facility] ([facility]) MPV 8.9 FL 7.8-11.0 [facility] ([facility]) Neut % 51.7 % 37.0-92.0 [facility] ([facility]) Lymph % 42.2 % 10.0-58.5 [facility] ([facility]) Mid % 6.1 % 1.7-9.3 [facility] ([facility]) Lymph # 4.1 x10*3/UL 0.6-4.1 [facility] ([facility]) Mid # 0.7 x10*3/UL 0.1-0.6 [facility] ([facility]) Neut # 5.1 x10*3/UL 2.0-7.8 [facility] ID Date Data Source [id number] 02/04/2020 08:51:00 AM EDT [facility] ([facility] Name Value Range Interpretation Code Description Data Charleen rce(s) Supporting Document(s) Prostate specific Ag [Mass/volume] in Serum or Plasma Laboratory test result [facility] ([facility]) This assay was performed on the Siemens Dimension EXL using the B- Galactosidase/CPRG methodology and should not be compared interchangeably with other methods. The PSA should not be used alone as a screening test for the presence or absence of malignant disease. ID Date Data Source [id number] 02/04/2020 08:51:00 AM EDT [facility] ([facility]) Name Value Range Interpretation Code Description Data Charleen rce(s) Supporting Document(s) Cholesterol [Mass/volume] in Serum or Plasma 247 mg/dL 131-200 [facility] ([facility]) Cholesterol in HDL [Mass/volume] in Serum or Plasma 48 mg/dL 35-60 [facility] ([facility]) Triglyceride [Mass/volume] in Serum or Plasma 173 mg/dL 30-150 [facility] ([facility]) Cholesterol in LDL [Mass/volume] in Serum or Plasma by calcu lation 164 CALC 50-159 [facility] ID Date Data Source [id number] 02/04/2020 08:51:00 AM EDT [facility] ([facility]) Name Value Range Interpretation Code Description Data Charleen rce(s) Supporting Document(s) Glucose [Mass/volume] in Serum or Plasma 103 mg/dL 74-99 [facility] ([facility]) 100-125 mg/dL PRE-DIABETES/FASTING >126 mg/dL DIABETES/FASTING Urea nitrogen [Mass/volume] in Serum or Plasma 23 mg/dL 7-18 [facility] ([facility]) Creatinine 1.5 mg/dL 0.6-1.3 [facility]) Sodium [Moles/volume] in Serum or Plasma 137 meq/L 136-145 [facility] ([facility]) Chloride [Moles/volume] in Serum or Plasma 101 meq/L 98-107 [facility] ([facility]) Potassium [Moles/volume] in Serum or Plasma 4.5 meq/L 3.5-5.1 [facility] ([facility]) Carbon dioxide, total [Moles/volume] in Serum or Plasma 26 meq/L 21 -32 [facility] ([facility]) Calcium [Mass/volume] in Serum or Plasma 9.2 mg/dL 8.5-10.1 [facility] ([facility]) Total Bilirubin 1.2 mg/dL 0.2-1.0 [facility] ([facility]) Alkaline phosphatase isoenzyme [Units/volume] in Serum or Pl asma 70 mg/dL 46-116 [facility] ([facility]) Aspartate aminotransferase [Enzymatic activity/volume] in Serum or Plasma 20 U/L 15-37 [facility] ([facility] ) Alanine aminotransferase [Enzymatic activity/volume] in Seru m or Plasma 32 U/L 12-78 [facility] ([facility]) A/G Ratio 1.28 CALC 1.00-1.90 [facility]) Proteinase 3 Ab [Units/volume] in Serum 7.3 g/dL 6.4-8.2 [facility] ([facility]) Albumin [Mass/volume] in Serum or Plasma 4.1 g/dL 3.4-5.0 [facility] ([facility]) Glomerular filtration rate/1.73 sq M pre dicted among blacks [Volume Rate/Area] in Serum or Plasma by Creatinine-based formula (MDRD) 56 mL/min [facility]) <content>CHRONIC KIDNEY DISEASE STAGING PER NKF</content>
<content></content>
<content>STAGE I & II GFR >= 60 NORMAL TO MILDLY DECREASED</content>
<content>STAGE III GFR 30-59 MODERATELY DECREASED</content>
<content>STAGE IV GFR 15-29 SEVERELY DECREASED</content>
<content>STAGE V GFR <15 VERY LITTLE GFR LEFT</content>
<content>ESRD GFR <15 ON SALES BRANCH MANAGER</content>
<content></content> Glomerular filtration rate/1.73 sq M pre dicted among non-blacks [Volume Rate/Area] in Serum or Plasma by Creatinine-based formula (MDRD) 47 mL/min [facility]) ID Date Data Source [id number] 02/04/2020 08:51:00 AM EDT [facility] ([facility]) Name Value Range Interpretation Code Description Data Charleen rce(s) Supporting Document(s) Leukocytes [#/volume] in Blood by Automated count 9.7 x10*3/UL 4.1-10 .9 [facility] ([facility]) Erythrocytes [#/volume] in Blood by Automated count 6.12 x10*6/UL 4.2 0-6.30 [facility] ([facility]) Hemoglobin [Mass/volume] in Blood 17.0 g/dL 12.0-18.0 [facility] ([facility]) MCH 27.8 pg 26.0-32.0 [facility] ([facility]) Hematocrit [Volume Fraction] of Blood by Automated count 48.6 % 3 7.0-51.0 [facility] ([facility]) MCV 79.4 fL 80.0-97.0 [facility] ([facility]) MCHC 35.0 g/dL 31.0-38.0 [facility] ([facility]) Erythrocyte distribution width [Ratio] by Automated count 13.7 % 11.6-13.7 [facility] ([facility]) MPV 8.9 FL 7.8-11.0 [facility] ([facility]) Platelets [#/volume] in Blood by Automated count 241 x10*3/UL 140-440 [facility] ([facility]) Mid % 7.3 % 1.7-9.3 [facility] ([facility]) Lymph % 40.7 % 10.0-58.5 [facility] ([facility]) Lymph # 3.9 x10*3/UL 0.6-4.1 [facility] ([facility]) Neut % 52.0 % 37.0-92.0 [facility] ([facility]) Neut # 5.0 x10*3/UL 2.0-7.8 [facility] ([facility]) Mid # 0.8 x10*3/UL 0.1-0.6 [facility] ([facility]) Procedure Social History Code Duration Value Status Description Data Source(s ) Smoking 02/16/2021 12:00:00 AM EDT Never Smoker completed Never S jacinto eCW1 ([facility]) Smoking 02/17/2020 12:00:00 AM EDT Never Smoker completed Never S moker eCW1 ([facility]) Smoking 02/17/2020 12:00:00 AM EDT Never Smoker completed Never S moker eCW1 ([facility]) Smoking 02/17/2020 12:00:00 AM EDT Never Smoker completed Never S moker eCW1 ([facility]) Vital Signs ID Date Data Source UNK Name Value Range Interpretation Code Description Data Source(s) Body weight 244 [lb_av] 244 [lb_av] eCW1 ([facility]) Body weight 110.68 kg 110.68 kg eCW1 ([facility]) Body height 60 [in_i] 60 [in_i] eCW1 ([facility]) Body mass index (BMI) [Ratio] 47.65 kg/m2 47.65 kg/m2 W1 ([facility]) Heart rate 67 /min 67 /min eCW1 (Count includes the [facility]) Respiratory rate 18 /min 18 /min eCW1 ([facility]) Body temperature 97.6 [degF] 97.6 [degF] eCW1 ( [facility]) Systolic blood pressure 128 mm[Hg] 128 mm[Hg] e CW1 ([facility]) Diastolic blood pressure 76 mm[Hg] 76 mm[Hg] eCW1 ([facility]) Body weight 242.00 [lb_av] 242.00 [lb_av] MEDEN T ([facility]) Oxygen saturation in Arterial blood by Pulse oximetry 98 % 98 % [facility] ([facility]) Body mass index (BMI) [Ratio] 34.5 kg/m2 34.5 k g/m2 [facility] ([facility]) Systolic blood pressure 136 mm[Hg] 136 mm[Hg] M EDENT ([facility]) Diastolic blood pressure 86 mm[Hg] 86 mm[Hg] [facility] ([facility]) Heart rate 64 /min 64 /min [facility] ([facility]) Body height 70.25 [in_i] 70.25 [in_i] [facility] ([facility]) 5'10.25" Body weight 244 [lb_av] 244 [lb_av] eCW1 ([facility]) Body height 60 [in_i] 60 [in_i] eCW1 ([facility]) Body mass index (BMI) [Ratio] 47.65 kg/m2 47.65 kg/m2 eCW1 ([facility]) Heart rate 84 /min 84 /min eCW1 (Count includes the [facility]) Respiratory rate 18 /min 18 /min eCW1 ([facility]) Body temperature 97.9 [degF] 97.9 [degF] eCW1 ( [facility]) Systolic blood pressure 118 mm[Hg] 118 mm[Hg] e CW1 ([facility]) Diastolic blood pressure mm[Hg] eCW1 ([facility]) Systolic blood pressure 135 mm[Hg] 135 mm[Hg] M EDENT ([facility]) Diastolic blood pressure 82 mm[Hg] 82 mm[Hg] [facility] ([facility]) Heart rate 62 /min 62 /min [facility] ([facility]) Oxygen saturation in Arterial blood by Pulse oximetry 97 % 97 % [facility] ([facility]) Body mass index (BMI) [Ratio] 32.9 kg/m2 32.9 k g/m2 [facility] ([facility]) Body height 70.25 [in_i] 70.25 [in_i] NNEKAENT ([facility]) 5'10.25" Body weight 231.00 [lb_av] 231.00 [lb_av] MEDEN T ([facility]) steel toes
--- NOTE | 2021-03-14 15:52 | REP ---
INDICATION: Coronavirus workup. COMPARISON: 02/20/2016 the latest prior two view exam TECHNIQUE: Portable FINDINGS: The technique utilized in obtaining the radiograph has magnified the cardiac silhouette and accentuated the interstitial markings. Cardiomediastinal silhouette is unchanged. The heart is not enlarged. New patchy bilateral interstitial and airspace opacities are now present. The pleural angles are sharp there is no change in the osseous structures. IMPRESSION: Lung field opacities consistent with pneumonia. <Electronically signed by Mata House > 03/14/21 [id number]
[2021-03-14 16:09] LABS: HEMATOCRIT 44.7 % (42.0-52.0); HEMOGLOBIN 14.9 g/dl (13.5-17.5); MEAN CORPUSCULAR HEMOGLOBIN 27.3 pg (27.0-33.0); MEAN CORPUSCULAR HGB CONC 33.3 g/dl (32.0-36.5); MEAN CORPUSCULAR VOLUME 81.9 fl (80.0-96.0); PLATELET COUNT, AUTOMATED 217 10^3/uL (150-450); RED BLOOD COUNT 5.46 10^6/uL (4.30-6.10)
[2021-03-14 16:26] LABS: INR 1.08; PROTHROMBIN TIME 14.5 SECONDS (12.7-14.5)
[2021-03-14 16:27] LABS: PARTIAL THROMBOPLASTIN TIME 28.8 SECONDS (25.9-37.0)
[2021-03-14 16:30] LABS: D-DIMER QUANT 1951.59 ng/ml (<500)
[2021-03-14 16:40] LABS: ABG BASE EXCESS 1.3 (-2.0-2.0); ABG HCO3 23.8 MEQ/L (22.0-26.0); ABG O2 SATURATION 94.4 % (95.0-99.0); ABG PARTIAL PRESSURE O2 66.9 mmHg (75.0-100.0); ABG STANDARD HCO3 25.5 MEQ/L (22.0-26.0); ABG TOTAL CO2 24.8 MEQ/L (23.0-31.0); ABG pH (ARTERIAL) 7.489 UNITS (7.350-7.450)
[2021-03-14] MEDS ORDERED: ACETAMINOPHEN 325 MG TAB PO ONE (16:50)
[2021-03-14 17:01] LABS: LYMPHOCYTES 24 % (16-44); MONOCYTES 2 % (0-5); NEUTROPHILS 74 % (28-66); PLATELET ESTIMATE NORMAL (NORMAL)
[2021-03-14 17:52] LABS: ALBUMIN 2.8 GM/DL (3.2-5.2); ALT/SGPT 29 U/L (12-78); BLOOD UREA NITROGEN 26 MG/DL (7-18); CALCIUM LEVEL 8.7 MG/DL (8.8-10.2); CARBON DIOXIDE LEVEL 25 MEQ/L (21-32); CHLORIDE LEVEL 101 MEQ/L (98-107); CK-MB VALUE MASS 1.6 NG/ML (<3.6); CPK CREATINE PHOSPHOKINASE 274 U/L (39-308); CREATININE FOR GFR 1.48 MG/DL (0.70-1.30); FERRITIN 760 NG/ML (26-388); GLOMERULAR FILTRATION RATE 50.2 (>49); GLUCOSE, FASTING 120 MG/DL (70-100); LDH LACTATE DEHYDROGENASE 438 U/L (87-241); MB/CK RELATIVE INDEX 0.58 (< OR =4); SODIUM LEVEL 135 MEQ/L (136-145); TROPONIN I < 0.02 NG/ML (< 0.10)
[2021-03-14] MEDS ORDERED: NS 1,000 ML IV ONE (18:05)
[2021-03-14] MEDS ORDERED: [UNRECOGNIZED DRUG - OTHER] PO (18:31)
[2021-03-14] MEDS ORDERED: BEE POLLEN PO (18:31)
[2021-03-14] MEDS ORDERED: HOME MED LIST COMPLETE! XX SCH (18:35)
--- OUTSIDE RECORDS SUMMARY | 2021-03-14 18:53 | CCD ---
Author Author [facility] Organization [facility] Address Unknown Phone Unavailable Care Team Providers Care Director [employer] Name Role Phone Sandy Hoyt MD Unavailable [...] Unavailable Unavailable Sandy Hoyt MD Unavailable Unavailable [place] MD Unavailable Unavailable [place] MD Unavailable Unavailable [place] MD Unavailable Unavailable [place] MD Unavailable Unavailable [place] MD Unavailable Unavailable EvelinaSandy MD Unavailable Unavailable [place] MD Unavailable Unavailable [place] MD Unavailable Unavailable EvelinaSandy MD Unavailable Unavailable [place] MD Unavailable Unavailable [place] MD Unavailable Unavailable [place] MD Unavailable Unavailable EvelinaSandy MD Unavailable Unavailable [place] MD Unavailable Unavailable EvelinaSandy MD Unavailable Unavailable EvelinaSandy MD Unavailable Unavailable EvelinaSandy MD Unavailable Unavailable EvelinaSandy MD Unavailable Unavailable EvelinaSandy MD Unavailable Unavailable EvelinaSandy MD Unavailable Unavailable [place] MD Unavailable Unavailable EvelinaSandy MD Unavailable Unavailable [place] MD Unavailable Unavailable [place] MD Unavailable Unavailable EvelinaSandy MD Unavailable Unavailable EvelinaSandy MD Unavailable Unavailable EvelinaSandy MD Unavailable Unavailable EvelinaSandy MD Unavailable Unavailable EvelinaSandy MD Unavailable Unavailable EvelinaSandy MD Unavailable Unavailable [place] MD Unavailable Unavailable EvelinaSandy MD Unavailable Unavailable EvelinaSandy MD Unavailable Unavailable [place] MD Unavailable Unavailable EvelinaSandy doshi MD Unavailable Unavailable EvelinaSandy doshi MD Unavailable Unavailable [place] MD Unavailable Unavailable EvelinaSandy MD Unavailable Unavailable [place] doshi MD Unavailable Unavailable EvelinaSandy MD Unavailable Unavailable EvelinaSandy doshi MD Unavailable Unavailable [place] doshi MD Unavailable Unavailable [place] doshi MD Unavailable Unavailable [place] MD Unavailable Unavailable EvelinaSandy MD Unavailable Unavailable EvelinaSandy MD Unavailable Unavailable EvelinaSandy MD Unavailable Unavailable [place] MD Unavailable Unavailable EvelinaSandy MD Unavailable Unavailable [place] MD Unavailable Unavailable EvelinaSandy MD Unavailable Unavailable EvelinaSandy MD Unavailable Unavailable EvelinaSandy MD Unavailable Unavailable EvelinaSandy MD Unavailable Unavailable [place] MD Unavailable Unavailable [place] MD Unavailable Unavailable Sandy Hoyt MD Unavailable [...] is protected by Article 27-F of the [facility] [place] [facility] law. If you continue you may have access to information: Regarding HIV / AIDS; Provided by facilities licensed or operated by the [facility] Office of Mental Health; or Provided by the [facility] Office for People With Developmental Disabilities. If such information is present, then the following [facility] mandated warning applies: This information has been [...] law may result in a fine or mcc sentence or both. A general authorization for [...] Date Indications Data Source(s ) Outpatient [address] [facility] [address] 02/16/2021 12:00:00 AM EDT eCW1 ([facility]) Outpatient Attender: Aneesh Danielle 1 08:00:00 AM EDT [facility] ([facility] ) Unknown [address] [facility] [place] [address] 07/25/2020 12:00:00 AM EDT eCW1 ([facility]) Unknown [address] [facility] [place] [address] 07/24/2020 12:00:00 AM EDT eCW1 (Formerly [facility]) [facility] [address] [place] [address] 03/20/2020 12:00:00 AM EST eCW1 (Formerly [facility]) Outpatient [address] [facility] [address] 02/17/2020 12:00:00 AM EDT eCW1 ([facility]ly [facility]) Outpatient Attender: Aneesh Danielle 1 08:20:00 AM EDT [facility] ([facility] ) Immunizations Vaccine Date Status Description Data Source(s) Influenza, injectable, MDCK, preservative free, apryl valent 02/09/2021 08:01:00 AM EDT completed [facility] [facility] Influenza, injectable, MDCK, preservative free, apryl valent 02/04/2020 08:21:00 AM EDT completed [facility] ([facility]) Medications No Information Insurance Providers Payer name Policy type / Coverage type Policy ID Covered republican ID Covered republican's relationship to vega Policy Vega Plan Information BS [place] Medigap Part B [id number] Self [id number] [place] B [id number] Self BS [place] Trad/MX Commercial [id number] Self 802 BS [place] Tr[employer]/[place] Commercial [id number] Self [id number] [place] Tr[place] Commercial [id number] Self 802 [place] Tr[employer] Commercial [id number] Self [id number] BS Of [place] Commercial [id number] Self BS [place] Commercial [id number] Self Y [id number] BS [place] Tr[employer] Commercial [id number] Self 802 BS [place] [employer] Commercial [id number] Self [id number] BS [place] [employer] Commercial [id number] Self [id number] [place] [employer] Commercial [id number] Self 802 [place] 302/307 [id number] SP [id number] [place] 302/307 [id number] SP [id number] [place] 302/307 [id number] SP [id number] [place] PPO 302/307 [id number] SP [id number] [place] PPO 302/307 [id number] SP [id number] [place] PPO 302/307 [id number] SP [id number] [place] PPO 302/307 [id number] SP [id number] ANSI-Commercial [id number] BS [place] Tr[employer] Commercial [id number] Self [id number] [place] PPO 302/307 [id number] SP [id number] MEDICAID UNAVAILABLE UNAVAILA BLE BCBS OF [place] 306/806 [id number] SP [id number] BS [place] Trad/MX Commercial [id number] Self 802 BCBS [place] 306/806 [id number] SP [id number] [place]LL[place] BCBS B [id number] S [id number] [place] BCBS B [id number] S [id number] BCBS OF [place] 306/806 [id number] SP [id number] Problems, Conditions, and Diagnoses Code Display Name Description Problem Type Effective Dates Data Source(s) C61 Prostate cancer Prostate cancer Problem 02/16/2021 12:0 0:00 AM EDT eCW1 ([facility]) C61 Malignant tumor of prostate Malignant neoplasm of pros goins Problem 02/17/2020 12:00:00 AM EDT eCW1 ([facility]) Surgeries/Procedures Procedure Description Date Indications Data Source(s) ECG ROUTINE ECG W/LEAST 12 LDS W/I&R 02/09/2021 12:00: 00 AM EDT [facility]) PERIODIC PREVENTIVE MED EST PATIENT 65YRS&> 02/09/2021 12:00:00 AM EDT [facility]) ECG ROUTINE ECG W/LEAST 12 LDS W/I&R 02/04/2020 12:00: 00 AM EDT [facility]) Results ID Date Data Source [id number] 02/09/2021 08:31:00 AM EDT [facility] ([facility]) Name Value Range Interpretation Code Description Data Charleen rce(s) Supporting Document(s) Prostate specific Ag [Mass/volume] in Serum or Plasma Laboratory test result [facility]) This assay was performed on the Siemens Dimension EXL using the B- Galactosidase/CPRG methodology and should not be compared interchangeably with other methods. The PSA should not be used alone as a screening test for the presence or absence of malignant disease. ID Date Data Source [id number] 02/09/2021 08:30:00 AM EDT [facility] ([facility]) Name Value Range Interpretation Code Description Data Charleen rce(s) Supporting Document(s) Cholesterol [Mass/volume] in Serum or Plasma 179 mg/dL 131-200 [facility] ([facility]) Cholesterol in HDL [Mass/volume] in Serum or Plasma 44 mg/dL 35-60 [facility] ([facility]) Triglyceride [Mass/volume] in Serum or Plasma 110 mg/dL 30-150 [facility] ([facility]) Cholesterol in LDL [Mass/volume] in Serum or Plasma by calcu lation 113 CALC 50-159 [facility] ([facility]) ID Date Data Source [id number] 02/09/2021 08:30:00 AM EDT [facility] ([facility]) Name Value Range Interpretation Code Description Data Charleen rce(s) Supporting Document(s) Glucose [Mass/volume] in Serum or Plasma 97 mg/dL 74-99 [facility] ([facility]) 100-125 mg/dL PRE-DIABETES/FASTING >126 mg/dL DIABETES/FASTING Creatinine 1.3 mg/dL 0.6-1.3 [facility]) Urea nitrogen [Mass/volume] in Serum or Plasma 22 mg/dL 7-18 [facility] ([facility]) Potassium [Moles/volume] in Serum or Plasma 4.8 meq/L 3.5-5.1 [facility] ([facility]) Sodium [Moles/volume] in Serum or Plasma 141 meq/L 136-145 [facility] ([facility]) Chloride [Moles/volume] in Serum or Plasma 105 meq/L 98-107 [facility] ([facility]) Calcium [Mass/volume] in Serum or Plasma 9.3 mg/dL 8.5-10.1 [facility] ([facility]) Carbon dioxide, total [Moles/volume] in Serum or Plasma 30 meq/L 21 -32 [facility] ([facility]) Alkaline phosphatase isoenzyme [Units/volume] in Serum or Pl asma 71 mg/dL 46-116 [facility] ([facility]) Total Bilirubin 0.9 mg/dL 0.2-1.0 [facility] ([facility]) Alanine aminotransferase [Enzymatic activity/volume] in Seru m or Plasma 28 U/L 12-78 [facility] ([facility]) Aspartate aminotransferase [Enzymatic activity/volume] in Serum or Plasma 15 U/L 15-37 [facility] ([facility] ) A/G Ratio 1.44 CALC 1.00-1.90 [facility]) Albumin [Mass/volume] in Serum or Plasma 3.9 g/dL 3.4-5.0 [facility] ([facility]) Proteinase 3 Ab [Units/volume] in Serum 6.6 g/dL 6.4-8.2 [facility] ([facility]) Glomerular filtration rate/1.73 sq M pre dicted among blacks [Volume Rate/Area] in Serum or Plasma by Creatinine-based formula (MDRD) Laboratory test result [facility] <content>CHRONIC KIDNEY DISEASE STAGING PER NKF</content>
<content></content>
<content>STAGE I & II GFR >= 60 NORMAL TO MILDLY DECREASED</content>
<content>STAGE III GFR 30-59 MODERATELY DECREASED</content>
<content>STAGE IV GFR 15-29 SEVERELY DECREASED</content>
<content>STAGE V GFR <15 VERY LITTLE GFR LEFT</content>
<content>ESRD GFR <15 ON BOILER SERVICE TECHNICIAN</content>
<content></content> Glomerular filtration rate/1.73 sq M pre dicted among non-blacks [Volume Rate/Area] in Serum or Plasma by Creatinine-based formula (MDRD) 55 mL/min [facility] ([facility]) ID Date Data Source [id number] 02/09/2021 08:30:00 AM EDT [facility] ([facility]) Name Value Range Interpretation Code Description Data Charleen rce(s) Supporting Document(s) Leukocytes [#/volume] in Blood by Automated count 9.9 x10*3/UL 4.1-10 .9 [facility] Hemoglobin [Mass/volume] in Blood 16.2 g/dL 12.0-18.0 [facility] Erythrocytes [#/volume] in Blood by Automated count 5.79 x10*6/UL 4.2 0-6.30 [facility] Hematocrit [Volume Fraction] of Blood by Automated count 46.9 % 3 7.0-51.0 [facility] MCH 28.0 pg 26.0-32.0 [facility] [facility]) MCV 81.0 fL 80.0-97.0 [facility] ([facility]) MCHC 34.5 g/dL 31.0-38.0 [facility] ([facility]) Platelets [#/volume] in Blood by Automated count 240 x10*3/UL 140-440 [facility] ([facility]) Erythrocyte distribution width [Ratio] by Automated count 14.2 % 11.6-13.7 [facility] ([facility]) MPV 8.9 FL 7.8-11.0 [facility] ([place] [facility]) Neut % 51.7 % 37.0-92.0 [facility] ([facility]) Lymph % 42.2 % 10.0-58.5 [facility] ([facility]) Mid % 6.1 % 1.7-9.3 [facility] ([facility]) Lymph # 4.1 x10*3/UL 0.6-4.1 [facility] ([facility]) Mid # 0.7 x10*3/UL 0.1-0.6 [facility] ([facility]) Neut # 5.1 x10*3/UL 2.0-7.8 [facility] ID Date Data Source [id number] 02/04/2020 08:51:00 AM EDT [facility] Name Value Range Interpretation Code Description Data Charleen rce(s) Supporting Document(s) Prostate specific Ag [Mass/volume] in Serum or Plasma Laboratory test result [facility] ([facility]) This assay was performed on the Siemens Dimension EXL using the B- Galactosidase/CPRG methodology and should not be compared interchangeably with other methods. The PSA should not be used alone as a screening test for the presence or absence of malignant disease. ID Date Data Source [id number] 02/04/2020 08:51:00 AM EDT [facility]) Name Value Range Interpretation Code Description Data Charleen rce(s) Supporting Document(s) Cholesterol [Mass/volume] in Serum or Plasma 247 mg/dL 131-200 [facility] ([facility]) Cholesterol in HDL [Mass/volume] in Serum or Plasma 48 mg/dL 35-60 [facility] ([facility]) Triglyceride [Mass/volume] in Serum or Plasma 173 mg/dL 30-150 [facility] ([facility]) Cholesterol in LDL [Mass/volume] in Serum or Plasma by calcu lation 164 CALC 50-159 [facility] ID Date Data Source [id number] 02/04/2020 08:51:00 AM EDT [facility]) Name Value Range Interpretation Code Description Data Charleen rce(s) Supporting Document(s) Glucose [Mass/volume] in Serum or Plasma 103 mg/dL 74-99 [facility] ([facility]) 100-125 mg/dL PRE-DIABETES/FASTING >126 mg/dL DIABETES/FASTING Urea nitrogen [Mass/volume] in Serum or Plasma 23 mg/dL 7-18 [facility] ([facility]) Creatinine 1.5 mg/dL 0.6-1.3 [facility]) Sodium [Moles/volume] in Serum or Plasma 137 meq/L 136-145 [facility] ([facility]) Chloride [Moles/volume] in Serum or Plasma 101 meq/L 98-107 [facility] ([facility]) Potassium [Moles/volume] in Serum or Plasma 4.5 meq/L 3.5-5.1 [facility] ([facility]) Carbon dioxide, total [Moles/volume] in Serum or Plasma 26 meq/L 21 -32 [facility] ([facility]) Calcium [Mass/volume] in Serum or Plasma 9.2 mg/dL 8.5-10.1 [facility] ([facility]) Total Bilirubin 1.2 mg/dL 0.2-1.0 [facility] ([facility]) Alkaline phosphatase isoenzyme [Units/volume] in Serum or Pl asma 70 mg/dL 46-116 [facility] ([facility]) Aspartate aminotransferase [Enzymatic activity/volume] in Serum or Plasma 20 U/L 15-37 [facility] ([facility] ) Alanine aminotransferase [Enzymatic activity/volume] in Seru m or Plasma 32 U/L 12-78 [facility] ([facility]) A/G Ratio 1.28 CALC 1.00-1.90 [facility] Proteinase 3 Ab [Units/volume] in Serum 7.3 g/dL 6.4-8.2 [facility]) Albumin [Mass/volume] in Serum or Plasma 4.1 g/dL 3.4-5.0 [facility]) Glomerular filtration rate/1.73 sq M pre dicted among blacks [Volume Rate/Area] in Serum or Plasma by Creatinine-based formula (MDRD) 56 mL/min [facility] <content>CHRONIC KIDNEY DISEASE STAGING PER NKF</content>
<content></content>
<content>STAGE I & II GFR >= 60 NORMAL TO MILDLY DECREASED</content>
<content>STAGE III GFR 30-59 MODERATELY DECREASED</content>
<content>STAGE IV GFR 15-29 SEVERELY DECREASED</content>
<content>STAGE V GFR <15 VERY LITTLE GFR LEFT</content>
<content>ESRD GFR <15 ON BOILER SERVICE TECHNICIAN</content>
<content></content> Glomerular filtration rate/1.73 sq M pre dicted among non-blacks [Volume Rate/Area] in Serum or Plasma by Creatinine-based formula (MDRD) 47 mL/min [facility] ID Date Data Source [id number] 02/04/2020 08:51:00 AM EDT [facility] ([facility]) Name Value Range Interpretation Code Description Data Charleen rce(s) Supporting Document(s) Leukocytes [#/volume] in Blood by Automated count 9.7 x10*3/UL 4.1-10 .9 [facility] ([facility]) Erythrocytes [#/volume] in Blood by Automated count 6.12 x10*6/UL 4.2 0-6.30 [facility] ([facility]) Hemoglobin [Mass/volume] in Blood 17.0 g/dL 12.0-18.0 [facility] ([facility]) MCH 27.8 pg 26.0-32.0 [facility] [facility]) Hematocrit [Volume Fraction] of Blood by Automated count 48.6 % 3 7.0-51.0 [facility] ([facility]) MCV 79.4 fL 80.0-97.0 [facility] ([place] [facility]) MCHC 35.0 g/dL 31.0-38.0 [facility] ([facility]) Erythrocyte distribution width [Ratio] by Automated count 13.7 % 11.6-13.7 [facility] ([facility]) MPV 8.9 FL 7.8-11.0 [facility] ([place] [facility]) Platelets [#/volume] in Blood by Automated count 241 x10*3/UL 140-440 [facility] ([facility]) Mid % 7.3 % 1.7-9.3 [facility] ([place] [facility]) Lymph % 40.7 % 10.0-58.5 [facility] ([place] [facility]) Lymph # 3.9 x10*3/UL 0.6-4.1 [facility] ([facility]) Neut % 52.0 % 37.0-92.0 [facility] ([place] [facility]) Neut # 5.0 x10*3/UL 2.0-7.8 [facility] ([facility]) Mid # 0.8 x10*3/UL 0.1-0.6 [facility] ([facility]) Procedure Social History Code Duration Value Status Description Data Source(s ) Smoking 02/16/2021 12:00:00 AM EDT Never Smoker completed Never S jacinto eCW1 ([facility]) Smoking 02/17/2020 12:00:00 AM EDT Never Smoker completed Never S moker eCW1 ([facility]) Smoking 02/17/2020 12:00:00 AM EDT Never Smoker completed Never S moker eCW1 ([facility]) Smoking 02/17/2020 12:00:00 AM EDT Never Smoker completed Never S moker eCW1 ([facility]) Vital Signs ID Date Data Source UNK Name Value Range Interpretation Code Description Data Source(s) Body weight 244 [lb_av] 244 [lb_av] eCW1 ([facility]) Body weight 110.68 kg 110.68 kg eCW1 ([facility]) Body height 60 [in_i] 60 [in_i] eCW1 ([facility]) Body mass index (BMI) [Ratio] 47.65 kg/m2 47.65 kg/m2 W1 ([facility]) Heart rate 67 /min 67 /min eCW1 ([facility]) Respiratory rate 18 /min 18 /min eCW1 ([facility]) Body temperature 97.6 [degF] 97.6 [degF] eCW1 ( [facility]) Systolic blood pressure 128 mm[Hg] 128 mm[Hg] e CW1 ([facility]) Diastolic blood pressure 76 mm[Hg] 76 mm[Hg] eCW1 ([facility]) Body weight 242.00 [lb_av] 242.00 [lb_av] MEDEN T ([facility]) Oxygen saturation in Arterial blood by Pulse oximetry 98 % 98 % [facility] ([facility]) Body mass index (BMI) [Ratio] 34.5 kg/m2 34.5 k g/m2 [facility] ([facility]) Systolic blood pressure 136 mm[Hg] 136 mm[Hg] M EDENT ([facility]) Diastolic blood pressure 86 mm[Hg] 86 mm[Hg] [facility] ([facility]) Heart rate 64 /min 64 /min [facility] ([facility]) Body height 70.25 [in_i] 70.25 [in_i] [facility] ([facility]) 5'10.25" Body weight 244 [lb_av] 244 [lb_av] eCW1 ([facility]) Body height 60 [in_i] 60 [in_i] eCW1 ([facility]) Body mass index (BMI) [Ratio] 47.65 kg/m2 47.65 kg/m2 eCW1 ([facility]) Heart rate 84 /min 84 /min eCW1 ([facility]) Respiratory rate 18 /min 18 /min eCW1 ([facility]) Body temperature 97.9 [degF] 97.9 [degF] eCW1 ( [facility]) Systolic blood pressure 118 mm[Hg] 118 mm[Hg] e CW1 ([facility]) Diastolic blood pressure mm[Hg] eCW1 ([facility]) Systolic blood pressure 135 mm[Hg] 135 mm[Hg] M EDENT ([facility]) Diastolic blood pressure 82 mm[Hg] 82 mm[Hg] [facility] ([facility]) Heart rate 62 /min 62 /min [facility] ([facility]) Body height 70.25 [in_i] 70.25 [in_i] [facility] ([facility]) 5'10.25" Body weight 231.00 [lb_av] 231.00 [lb_av] MEDEN T ([facility]) steel toes Oxygen saturation in Arterial blood by Pulse oximetry 97 % 97 % [facility] ([facility]) Body mass index (BMI) [Ratio] 32.9 kg/m2 32.9 k g/m2 [facility] ([facility])
--- NOTE | 2021-03-14 19:03 | HPEPDOC ---
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, who developed body achesm fatigue and insomnia approximately 2 weeks ago but thought it would pass and thus continued to go to work and then develops chills and subjective fevers, and progressive shortness of breath for which he had a home covid test yesterday that was negative, and this morning when he was short of breath at [facility], he went to urgent care where he tested negative for covid but was noted to be hypoxemic to 88% on room air at rest and was directed to the ED where he eventually tested positive for covid-19 and was had a fever to 103.4 and hypoxemic and now saturating 92% on 4L NC. CXR revealed bilateral patchy infiltrates without effusions, troponin was negative, EKG showed NSR, WBC was 14, Hgb 14.9, platelets 217, na 135, K 4, BUN 26, Cr 1.48, lactic acid 1.9, LDH 438, DDimer 1951, CRP 12.4. He denies cara chest pain at this time or pleurisy but reports SOB even at rest. He has had poor PO and a poor appetite without emesis or diarrhea. He is now being admitted to medicine for covid-19 PNA with c/f superimposed CAP. PAST MEDICAL HISTORY: Obesity PAST SURGICAL HISTORY: None SOCIAL HISTORY: Tobacco use: Denies ETOH: Denies Illicit drug use: Denies FAMILY HISTORY: Reviewed, non-contributory ALLERGIES: Please see below. REVIEW OF SYSTEMS: 10 point ROS was otherwise negative, except as noted in the HPI HOME MEDICATIONS: Please see below. PHYSICAL EXAMINATION: VITAL SIGNS: see below GENERAL APPEARANCE: NAD, mildly tachypneic HEENT: NCAT, EOMI, MMM CARDIOVASCULAR: RRR, no m/r/g LUNGS: CTAB at present without crackles or wheezing ABDOMEN: Obese, soft, normoactive bowel sounds, NTND EXTREMITIES: WWP, no LE edema NEUROLOGICAL: CN 3-12 intact, 5/5 strength in bilateral upper and lower extremities, nonfocal examination PSYCHIATRIC: AOx3 LABORATORY DATA and IMAGING: Summarized above MICROBIOLOGY: Please see below. 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 Covid-19 PNA with acute hypoxemic respiratory failure: -dexamethasone 6mg daily, day 1 -remdesevir, day 1 -Has elevated inflammatory markers, baracitinib, day 1 -supplemental O2, to goal >90% -Q4H O2 sats with vitals -Incentive spirometry -Encourage awake pronation -albuterol PRN -combivent -droplet precautions -covid-19 labs per protocol -lovenox 40 for DVT ppx -ASA 81 -Tylenol PRN presumed superimposed CAP: -will give empiric ceftriaxone/doxy -SCx -Mycoplasma serologies -Urine strep and legionella urine antigens -f/u procalcitonin -MRSA swab -f/u BCx Dispo: medsurg, inpatient Vital Signs Vital Signs Date Time Temp Pulse Resp B/P (MAP) Pulse Ox O2 Delivery O2 Flow Rate FiO2 03/14/21 16:52 81 24 131/81 (98) 92 4.0 03/14/21 16:50 103.4 03/14/21 14:14 Room Air Laboratory Data Labs 24H Laboratory Tests 2 03/14/21 15:37: Neutrophils (%) (Auto) , Nucleated Red Blood Cells % (auto) 0.0, Neutrophils 74H, Lymphocytes (Manual) 24, Monocytes (Manual) 2, Platelet Estimate NORMAL, Prothrombin Time 14.5H, Prothromb Time International Ratio 1.08, Activated Partial Thromboplast Time 28.8, Fibrinogen 793H, D-Dimer, Quantitative 1951.59H 03/14/21 16:25: Blood Gas Bicarbonate Standard 25.5, Arterial Blood pH 7.489H, Arterial Blood Partial Pressure CO2 32.0L, Arterial Blood Partial Pressure O2 66.9L, Arterial Blood Total CO2 24.8, Arterial Blood HCO3 23.8, Arterial Blood Base Excess 1.3, Arterial Blood Oxygen Saturation 94.4L 03/14/21 17:02: Anion Gap 9, Glomerular Filtration Rate 50.2, Lactic Acid Level 1.9, Calcium Level 8.7L, Magnesium Level 2.0, Ferritin 760H, Total Bilirubin 1.0, Aspartate Amino Transf (AST/SGOT) 45H, Alanine Aminotransferase (ALT/SGPT) 29, Alkaline Phosphatase 60, Lactate Dehydrogenase 438H, Total Creatine Kinase 274, Creatine Kinase MB 1.6, Creatine Kinase MB Relative Index 0.58, Troponin I < 0.02, C- Reactive Protein, Quantitative 12.40H, Total Protein 6.0L, Albumin 2.8L, Albumin/Globulin Ratio 0.9 CBC/BMP Laboratory Tests 03/14/21 15:37 03/14/21 17:02 Microbiology Microbiology 03/14/21 Respiratory Virus Panel (PCR) ([facility]) - Final, Complete SARS-CoV-2 (COVID 19) 03/14/21 Blood Culture, Received Pending 03/14/21 Blood Culture, Received Pending Home Medications Scheduled [Bee Pollen/Acv] , 2 CAP PO TID W/ APPLE CIDER VINEGAR Allergies Coded Allergies: No Known Allergies (Unverified , 01/06/14) A-FIB/CHADSVASC A-FIB History Current/History of A-Fib/PAF?: No Current PO Anticoag Therapy: No Age/Risk Factor Scoring CHADSVASC: CHADSVASC Response (Comments) Value Age Risk Factor Age 65-74 years old 1 Gender Risk Factor Male 0 Hx of CHF No 0 Hx of HTN No 0 Hx of Stroke/TIA/or VTE No 0 Hx of Diabetes No 0 Hx of Vascular Disease No 0 Total 1 Treatment Treatment ordered: NONE Reason Anticoagulant not given: Not indicated/[id number] LIZA TORRES MD Mar 14, 2021 18:40
[2021-03-14] MEDS ORDERED: ISOVUE-370 76% 100ML VIAL As Ordered ONE (19:04)
--- NOTE | 2021-03-14 19:42 | REPVR ---
PROCEDURE INFORMATION: Exam: CTA Chest With Contrast Exam date and time: 03/14/2021 7:14 PM Age: 71 years old Clinical indication: Other: Hypoxia, elevated ddimer; Patient HX: Covid TECHNIQUE: Imaging protocol: Computed tomographic angiography of the chest with contrast. 3D rendering (Not supervised by radiologist): MIP and/or 3D reconstructed images were created by the technologist. Radiation optimization: All CT scans at this facility use at least one of these dose optimization techniques: automated exposure control; mA and/or kV adjustment per patient size (includes targeted exams where dose is matched to clinical indication); or iterative reconstruction. Contrast material: ISOVUE 370; Contrast volume: 75 ml; Contrast route: INTRAVENOUS (IV); COMPARISON: CR PORTABLE CHEST X-RAY 03/14/2021 3:28 PM FINDINGS: Pulmonary arteries: Normal. No pulmonary emboli. Aorta: Unremarkable. No aortic aneurysm. No aortic dissection. Lungs: Diffuse ground-glass opacities in bilateral lungs consistent with patient's history of COVID-19 infection. Pleural spaces: Unremarkable. No pneumothorax. No pleural effusion. Heart: Unremarkable. No cardiomegaly. No pericardial effusion. Lymph nodes: Unremarkable. No enlarged lymph nodes. Gallbladder and bile ducts: Cholelithiasis. Bones/joints: Unremarkable. No acute fracture. Soft tissues: Unremarkable. IMPRESSION: No pulmonary embolism. Ground-glass opacities in bilateral lungs consistent with patient's history of COVID-19 infection. Electronically signed by: Brian Garcia On 03/14/2021 19:42:06 PM
[2021-03-14] MEDS: IPRATROPIUM 0.5MG/ALBUTEROL 2.5MG INH SOL UD 3ML (DUONEB) INH SCH ×2 (20:00→23:42)
--- NOTE | 2021-03-14 20:38 | ECGEPIP ---
[facility] - ED Test Date: 2021-03-14 Pat Name: KIRSTIE MCKEON Department: Room: - Gender: Male [employer]: : 1950 Requested By: Radha Clark PA-C Order Number: [id number] Reading MD: Rubina Ordonez Measurements Intervals [place] Rate: 85 P: 50 AR: 172 QRS: -7 QRSD: 88 T: 17 QT: 350 QTc: 416 Interpretive Statements Normal sinus rhythm Inferior infarct , age undetermined increased rate 06/17/14 Electronically Signed on 03-14-2021 20:38:40 EST by Rubina Ordonez
[2021-03-14] MEDS ORDERED: REMDESIVIR 200 MG in NS 250 ML IV ONE (22:00)
[2021-03-14] MEDS ORDERED: SODIUM CHLORIDE 0.9% INJ 10 ML SYR IV ONE (22:00)
[2021-03-14] MEDS: dexameTHASONE 4 MG/ML 1ML VIAL (J1100 PER 1MG) IV SCH (23:28)
[2021-03-14] MEDS: LevoFLOXacin IV 750 MG in IV 1 EA IV SCH (23:28)
[2021-03-15] VITALS (7 sets, daily range): BP systolic 104–134; BP diastolic 55–75; O2SAT 90–94
[2021-03-15] MEDS: IPRATROPIUM 0.5MG/ALBUTEROL 2.5MG INH SOL UD 3ML (DUONEB) INH SCH ×5 (04:00→20:38)
[2021-03-15 07:48] LABS: HEMATOCRIT 42.1 % (42.0-52.0); HEMOGLOBIN 13.9 g/dl (13.5-17.5); MEAN CORPUSCULAR HEMOGLOBIN 26.9 pg (27.0-33.0); MEAN CORPUSCULAR VOLUME 81.4 fl (80.0-96.0); PLATELET COUNT, AUTOMATED 226 10^3/uL (150-450); RED BLOOD COUNT 5.17 10^6/uL (4.30-6.10); WHITE BLOOD COUNT 10.6 10^3/uL (4.0-10.0)
[2021-03-15 08:12] LABS: ALBUMIN 2.3 GM/DL (3.2-5.2); ALT/SGPT 27 U/L (12-78); BILIRUBIN,DIRECT 0.3 MG/DL (0.0-0.2); BILIRUBIN,TOTAL 0.8 MG/DL (0.2-1.0); BLOOD UREA NITROGEN 28 MG/DL (7-18); CALCIUM LEVEL 8.3 MG/DL (8.8-10.2); CARBON DIOXIDE LEVEL 22 MEQ/L (21-32); CHLORIDE LEVEL 107 MEQ/L (98-107); CREATININE FOR GFR 1.07 MG/DL (0.70-1.30); GLOMERULAR FILTRATION RATE > 60.0 (>49); GLUCOSE, FASTING 135 MG/DL (70-100); MAGNESIUM LEVEL 2.2 MG/DL (1.8-2.4); POTASSIUM SERUM 4.4 MEQ/L (3.5-5.1); SODIUM LEVEL 139 MEQ/L (136-145); TOTAL PROTEIN 5.5 GM/DL (6.4-8.2)
[2021-03-15 08:49] LABS: ANISOCYTOSIS 1+; ATYPICAL LYMPH 1 % (0-5); LYMPHOCYTES 38 % (16-44); MONOCYTES 4 % (0-5); NEUTROPHILS 57 % (28-66); PLATELET ESTIMATE NORMAL (NORMAL); SMUDGE CELLS 2+
[2021-03-15] MEDS: ENOXAPARIN 40MG/0.4ML SYRINGE (J1650 PER 10MG) SC SCH (08:52)
[2021-03-15] MEDS: ASPIRIN 81MG ENTERIC TABLET PO SCH (08:52)
[2021-03-15] MEDS: BARICITINIB 2MG TABLET (OLUMIANT) FOR EUA PO SCH (11:27)
--- NOTE | 2021-03-15 13:52 | IPNPDOC ---
Text Note Date of Service The patient was seen on 03/15/21. NOTE SUBJECTIVE: -No acute events overnight, on 5L NC -Had low grade fevers PHYSICAL EXAMINATION: VITAL SIGNS: see below GENERAL APPEARANCE: NAD, mildly tachypneic HEENT: NCAT, EOMI, MMM CARDIOVASCULAR: RRR, no m/r/g LUNGS: CTAB at present without crackles or wheezing ABDOMEN: Obese, soft, normoactive bowel sounds, NTND EXTREMITIES: WWP, no LE edema NEUROLOGICAL: CN 3-12 intact, 5/5 strength in bilateral upper and lower extremities, nonfocal examination PSYCHIATRIC: AOx3 LABORATORY DATA: procal 0.28 WBC 10.6 Hgb 13.9 Platelets 226 na 139 K 4.4 Cr 1.07 MICROBIOLOGY: Please see below. 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 Covid-19 PNA with acute hypoxemic respiratory failure: -dexamethasone 6mg daily, day 2 -remdesevir, day 2 -Has elevated inflammatory markers, baracitinib, day 2 -supplemental O2, to goal >90% -Q4H O2 sats with vitals -Incentive spirometry -Encourage awake pronation -albuterol PRN -combivent -droplet precautions -covid-19 labs per protocol -lovenox 40 for DVT ppx -ASA 81 -Tylenol PRN presumed superimposed CAP: -Day 2 of empiric ceftriaxone/doxy -f/u SCx -f/u Mycoplasma serologies -f/u Urine strep and legionella urine antigens -f/u procalcitonin -MRSA swab -f/u BCx Dispo: medsurg, inpatient VS,Fishbone, I+O VS, Fishbone, I+O Laboratory Tests 03/14/21 15:37 03/14/21 17:02 03/15/21 07:00 Vital Signs Date Time Temp Pulse Resp B/P (MAP) Pulse Ox O2 Delivery O2 Flow Rate FiO2 11/11/21 04:00 98.8 59 19 109/60 (50) 93 Nasal Cannula 5.0 I&O- Last 24 Hours up to 6 AM 03/15/21 05:59 Intake Total 325 ml Balance 325 ml LIZA TORRES MD Mar 15, 2021 08:21
[2021-03-15] MEDS: LevoFLOXacin IV 750 MG in IV 1 EA IV SCH (19:40)
[2021-03-15] MEDS: dexameTHASONE 4 MG/ML 1ML VIAL (J1100 PER 1MG) IV SCH (21:39)
[2021-03-15] MEDS: REMDESIVIR 100 MG in NS 250 ML IV SCH (21:39)
[2021-03-15] MEDS: SODIUM CHLORIDE 0.9% INJ 10 ML SYR IV SCH (23:05)
[2021-03-16] VITALS: BP 105/57
[2021-03-16 04:00] VITALS: BP 102/63
[2021-03-16] MEDS: IPRATROPIUM 0.5MG/ALBUTEROL 2.5MG INH SOL UD 3ML (DUONEB) INH SCH ×6 (04:00→20:00)
[2021-03-16 07:04] LABS: BASO % 0.1 % (0.0-1.0); HEMATOCRIT 39.8 % (42.0-52.0); HEMOGLOBIN 13.5 g/dl (13.5-17.5); LYMPH # 4.5 10^3/uL (1.5-5.0); LYMPH % 31.7 % (24.0-44.0); MEAN CORPUSCULAR HEMOGLOBIN 27.2 pg (27.0-33.0); MEAN CORPUSCULAR HGB CONC 33.9 g/dl (32.0-36.5); MEAN CORPUSCULAR VOLUME 80.2 fl (80.0-96.0); MONO # 0.3 10^3/uL (0.0-0.8); MONO % 2.2 % (2.0-8.0); NEUTROPHILS # 9.3 10^3/uL (1.5-8.5); NEUTROPHILS % 65.4 % (36.0-66.0); PLATELET COUNT, AUTOMATED 252 10^3/uL (150-450); RED BLOOD COUNT 4.96 10^6/uL (4.30-6.10); WHITE BLOOD COUNT 14.2 10^3/uL (4.0-10.0)
[2021-03-16 07:14] LABS: ALBUMIN 2.2 GM/DL (3.2-5.2); ALT/SGPT 31 U/L (12-78); BILIRUBIN,DIRECT 0.2 MG/DL (0.0-0.2); BILIRUBIN,TOTAL 0.5 MG/DL (0.2-1.0); BLOOD UREA NITROGEN 31 MG/DL (7-18); CALCIUM LEVEL 8.6 MG/DL (8.8-10.2); CARBON DIOXIDE LEVEL 23 MEQ/L (21-32); CHLORIDE LEVEL 106 MEQ/L (98-107); CPK CREATINE PHOSPHOKINASE 132 U/L (39-308); CREATININE FOR GFR 1.07 MG/DL (0.70-1.30); FERRITIN 1246 NG/ML (26-388); GLOMERULAR FILTRATION RATE > 60.0 (>49); GLUCOSE, FASTING 166 MG/DL (70-100); LDH LACTATE DEHYDROGENASE 362 U/L (87-241); MAGNESIUM LEVEL 2.3 MG/DL (1.8-2.4); NT-PRO BNP 150 PG/ML (<125); POTASSIUM SERUM 4.1 MEQ/L (3.5-5.1); SODIUM LEVEL 137 MEQ/L (136-145); TOTAL PROTEIN 5.9 GM/DL (6.4-8.2); TROPONIN I < 0.02 NG/ML (< 0.10)
[2021-03-16 07:16] LABS: INR 1.25; PROTHROMBIN TIME 16.1 SECONDS (12.7-14.5)
[2021-03-16 07:17] LABS: PARTIAL THROMBOPLASTIN TIME 29.1 SECONDS (25.9-37.0)
[2021-03-16 08:00] VITALS: BP 111/68
[2021-03-16] MEDS: ENOXAPARIN 40MG/0.4ML SYRINGE (J1650 PER 10MG) SC SCH (09:08)
[2021-03-16] MEDS: BARICITINIB 2MG TABLET (OLUMIANT) FOR EUA PO SCH (09:09)
[2021-03-16] MEDS: ASPIRIN 81MG ENTERIC TABLET PO SCH (09:09)
[2021-03-16 12:00] VITALS: BP 118/65
[2021-03-16] MEDS: ALBUTEROL 90 MCG/ACT 8GM HFA INHALER INH PRN ×4 (12:12→21:03)
--- NOTE | 2021-03-16 14:11 | IPNPDOC ---
Text Note Date of Service The patient was seen on 03/16/21. NOTE SUBJECTIVE: -No acute events overnight, continues on 5L NC PHYSICAL EXAMINATION: VITAL SIGNS: see below GENERAL APPEARANCE: NAD, mildly tachypneic HEENT: NCAT, EOMI, MMM CARDIOVASCULAR: RRR, no m/r/g LUNGS: CTAB at present without crackles or wheezing ABDOMEN: Obese, soft, normoactive bowel sounds, NTND EXTREMITIES: WWP, no LE edema NEUROLOGICAL: CN 3-12 intact, 5/5 strength in bilateral upper and lower extremities, nonfocal examination PSYCHIATRIC: AOx3 LABORATORY DATA: Reviewed MICROBIOLOGY: Please see below. 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 Covid-19 PNA with acute hypoxemic respiratory failure: -dexamethasone 6mg daily, day 3 -remdesevir, day 3 -Has elevated inflammatory markers, baracitinib, day 3 -supplemental O2, to goal >90% -Q4H O2 sats with vitals -Incentive spirometry -Encourage awake pronation -albuterol PRN -combivent -droplet precautions -covid-19 labs per protocol -lovenox 40 for DVT ppx -ASA 81 -Tylenol PRN presumed superimposed CAP: -Day 3 of 5 of empiric ceftriaxone/doxy -f/u SCx -f/u Mycoplasma serologies -f/u Urine strep and legionella urine antigens -f/u procalcitonin -MRSA swab -f/u BCx Dispo: medsurg, inpatient VS,Fishbone, I+O VS, Fishbone, I+O Laboratory Tests 03/16/21 06:38 Vital Signs Date Time Temp Pulse Resp B/P (MAP) Pulse Ox O2 Delivery O2 Flow Rate FiO2 03/16/21 08:00 97.8 78 18 111/68 (82) 92 Nasal Cannula 5.0 I&O- Last 24 Hours up to 6 AM 03/16/21 06:00 Intake Total 1660 ml Output Total 575 ml Balance 1085 ml LIZA TORRES MD Mar 16, 2021 09:39
[2021-03-16 15:09] LABS: MYCOPLASMA PNEUMONIAE IgG 185 U/mL (0-99); MYCOPLASMA PNEUMONIAE IgM <770 U/mL (0-769)
[2021-03-16 16:00] VITALS: BP 128/74
[2021-03-16 20:00] VITALS: BP 126/73
[2021-03-16] MEDS: dexameTHASONE 4 MG/ML 1ML VIAL (J1100 PER 1MG) IV SCH (20:15)
[2021-03-16] MEDS: LevoFLOXacin IV 750 MG in IV 1 EA IV SCH (20:15)
[2021-03-16] MEDS: SODIUM CHLORIDE 0.9% INJ 10 ML SYR IV SCH (21:00)
[2021-03-16] MEDS: REMDESIVIR 100 MG in NS 250 ML IV SCH (22:19)
[2021-03-17] VITALS: BP 126/80; O2SAT 92
[2021-03-17 04:00] VITALS: BP 110/55; O2SAT 92
[2021-03-17] MEDS: IPRATROPIUM 0.5MG/ALBUTEROL 2.5MG INH SOL UD 3ML (DUONEB) INH SCH ×6 (04:00→23:32)
[2021-03-17 07:33] LABS: BASO % 0.1 % (0.0-1.0); HEMATOCRIT 40.7 % (42.0-52.0); HEMOGLOBIN 13.8 g/dl (13.5-17.5); LYMPH # 4.3 10^3/uL (1.5-5.0); LYMPH % 30.4 % (24.0-44.0); MEAN CORPUSCULAR HEMOGLOBIN 27.3 pg (27.0-33.0); MEAN CORPUSCULAR HGB CONC 33.9 g/dl (32.0-36.5); MEAN CORPUSCULAR VOLUME 80.6 fl (80.0-96.0); MONO # 0.5 10^3/uL (0.0-0.8); MONO % 3.7 % (2.0-8.0); NEUTROPHILS # 9.1 10^3/uL (1.5-8.5); PLATELET COUNT, AUTOMATED 295 10^3/uL (150-450); RED BLOOD COUNT 5.05 10^6/uL (4.30-6.10)
[2021-03-17] MEDS: ALBUTEROL 90 MCG/ACT 8GM HFA INHALER INH PRN ×2 (07:46→12:18)
[2021-03-17 07:54] LABS: BLOOD UREA NITROGEN 32 MG/DL (7-18); CALCIUM LEVEL 8.7 MG/DL (8.8-10.2); CARBON DIOXIDE LEVEL 23 MEQ/L (21-32); CHLORIDE LEVEL 108 MEQ/L (98-107); GLOMERULAR FILTRATION RATE > 60.0 (>49); GLUCOSE, FASTING 161 MG/DL (70-100); MAGNESIUM LEVEL 2.3 MG/DL (1.8-2.4); SODIUM LEVEL 138 MEQ/L (136-145)
[2021-03-17 08:00] VITALS: BP 114/78
[2021-03-17] MEDS: ENOXAPARIN 40MG/0.4ML SYRINGE (J1650 PER 10MG) SC SCH (08:32)
[2021-03-17] MEDS: BARICITINIB 2MG TABLET (OLUMIANT) FOR EUA PO SCH (08:33)
[2021-03-17] MEDS: ASPIRIN 81MG ENTERIC TABLET PO SCH (08:33)
[2021-03-17 12:00] VITALS: BP 112/72
--- NOTE | 2021-03-17 13:48 | IPNPDOC ---
Text Note Date of Service The patient was seen on 03/17/21. NOTE SUBJECTIVE: -No acute events overnight, on 3.5L NC PHYSICAL EXAMINATION: VITAL SIGNS: see below GENERAL APPEARANCE: NAD, mildly tachypneic HEENT: NCAT, EOMI, MMM CARDIOVASCULAR: RRR, no m/r/g LUNGS: CTAB,no wheezing or crackles, now down to 3.5L NC ABDOMEN: Obese, soft, normoactive bowel sounds, NTND EXTREMITIES: WWP, no LE edema NEUROLOGICAL: CN 3-12 intact, 5/5 strength in bilateral upper and lower extremities, nonfocal examination PSYCHIATRIC: AOx3 LABORATORY DATA: Reviewed WBC 14.3 Hgb 13.8 BMP pending MICROBIOLOGY: Please see below. 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 Covid-19 PNA with acute hypoxemic respiratory failure: -dexamethasone 6mg daily, day 4 -remdesevir, day 4 -Has elevated inflammatory markers, baracitinib, day 4 -supplemental O2, to goal >90% -Q4H O2 sats with vitals -Incentive spirometry -Encourage awake pronation -albuterol PRN -combivent -droplet precautions -covid-19 labs per protocol -lovenox 40 for DVT ppx -ASA 81 -Tylenol PRN presumed superimposed CAP: -Day 4 of 5 of empiric ceftriaxone/doxy -f/u SCx -f/u Mycoplasma serologies -f/u Urine strep and legionella urine antigens -f/u procalcitonin -MRSA swab -f/u BCx Dispo: medsurg, inpatient VS,Anna, I+O VS, Anna, I+O Laboratory Tests 03/17/21 07:07 Vital Signs Date Time Temp Pulse Resp B/P (MAP) Pulse Ox O2 Delivery O2 Flow Rate FiO2 03/17/21 04:00 92 Nasal Cannula 3.5 03/17/21 04:00 96.3 57 17 110/55 (73) I&O- Last 24 Hours up to 6 AM 03/17/21 06:00 Intake Total 2140 ml Output Total 775 ml Balance 1365 ml LIZA TORRES MD Mar 17, 2021 07:45
[2021-03-17 16:00] VITALS: BP 113/70
[2021-03-17 20:00] VITALS: BP 120/68
[2021-03-17] MEDS: LevoFLOXacin IV 750 MG in IV 1 EA IV SCH (20:05)
[2021-03-17] MEDS: REMDESIVIR 100 MG in NS 250 ML IV SCH (21:53)
[2021-03-17] MEDS: dexameTHASONE 4 MG/ML 1ML VIAL (J1100 PER 1MG) IV SCH (21:53)
[2021-03-17] MEDS: SODIUM CHLORIDE 0.9% INJ 10 ML SYR IV SCH (21:53)
[2021-03-18] VITALS: O2SAT 92
[2021-03-18] MEDS: IPRATROPIUM 0.5MG/ALBUTEROL 2.5MG INH SOL UD 3ML (DUONEB) INH SCH ×3 (03:32→12:00)
[2021-03-18 04:00] VITALS: BP 109/63; O2SAT 93
[2021-03-18 07:39] LABS: BASO % 0.1 % (0.0-1.0); HEMATOCRIT 40.7 % (42.0-52.0); HEMOGLOBIN 13.8 g/dl (13.5-17.5); LYMPH # 4.3 10^3/uL (1.5-5.0); LYMPH % 31.1 % (24.0-44.0); MEAN CORPUSCULAR HEMOGLOBIN 27.7 pg (27.0-33.0); MEAN CORPUSCULAR HGB CONC 33.9 g/dl (32.0-36.5); MEAN CORPUSCULAR VOLUME 81.7 fl (80.0-96.0); MONO # 0.5 10^3/uL (0.0-0.8); MONO % 3.5 % (2.0-8.0); NEUTROPHILS # 8.9 10^3/uL (1.5-8.5); NEUTROPHILS % 63.8 % (36.0-66.0); PLATELET COUNT, AUTOMATED 299 10^3/uL (150-450); RED BLOOD COUNT 4.98 10^6/uL (4.30-6.10); WHITE BLOOD COUNT 13.9 10^3/uL (4.0-10.0)
[2021-03-18 07:50] LABS: INR 1.14; PROTHROMBIN TIME 15.1 SECONDS (12.7-14.5)
[2021-03-18 07:51] LABS: PARTIAL THROMBOPLASTIN TIME 25.4 SECONDS (25.9-37.0)
[2021-03-18] MEDS: ALBUTEROL 90 MCG/ACT 8GM HFA INHALER INH PRN (07:57)
[2021-03-18 07:59] LABS: ALBUMIN 2.4 GM/DL (3.2-5.2); ALT/SGPT 57 U/L (12-78); BILIRUBIN,DIRECT 0.2 MG/DL (0.0-0.2); BILIRUBIN,TOTAL 0.6 MG/DL (0.2-1.0); BLOOD UREA NITROGEN 32 MG/DL (7-18); CALCIUM LEVEL 8.5 MG/DL (8.8-10.2); CARBON DIOXIDE LEVEL 20 MEQ/L (21-32); CHLORIDE LEVEL 108 MEQ/L (98-107); CPK CREATINE PHOSPHOKINASE 115 U/L (39-308); CREATININE FOR GFR 1.05 MG/DL (0.70-1.30); FERRITIN 994 NG/ML (26-388); GLOMERULAR FILTRATION RATE > 60.0 (>49); GLUCOSE, FASTING 174 MG/DL (70-100); LDH LACTATE DEHYDROGENASE 353 U/L (87-241); MAGNESIUM LEVEL 2.3 MG/DL (1.8-2.4); NT-PRO BNP 202 PG/ML (<125); POTASSIUM SERUM 4.3 MEQ/L (3.5-5.1); SODIUM LEVEL 139 MEQ/L (136-145); TOTAL PROTEIN 5.8 GM/DL (6.4-8.2); TROPONIN I < 0.02 NG/ML (< 0.10)
[2021-03-18 08:00] VITALS: BP 109/64
[2021-03-18] MEDS: ASPIRIN 81MG ENTERIC TABLET PO SCH (09:30)
[2021-03-18] MEDS: BARICITINIB 2MG TABLET (OLUMIANT) FOR EUA PO SCH (09:31)
[2021-03-18] MEDS: ENOXAPARIN 40MG/0.4ML SYRINGE (J1650 PER 10MG) SC SCH (09:32)
[2021-03-18] MEDS ORDERED: VENTAER INH (09:42)
[2021-03-18] MEDS ORDERED: ASPI-551 PO (09:42)
[2021-03-18] MEDS ORDERED: MUCI600T31 PO (09:44)
--- NOTE | 2021-03-18 11:53 | DS.PDOC ---
Discharge Summary General Date of Admission Mar 14, 2021 at 18:10 Date of Discharge 03/18/2021 Attending Physician: LIZA TORRES MD Discharge Summary PROCEDURES PERFORMED DURING STAY: None ADMITTING DIAGNOSES: Covid-19 PNA Acute hypoxemic respiratory failure DISCHARGE DIAGNOSES: Covid-19 PNA Acute hypoxemic respiratory failure ZACH Obesity Presumed superimposed CAP COMPLICATIONS/CHIEF COMPLAINT: Zach,Cap,Hypoxemia,Pneumonia Due To Covid19. 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 approximately 2 weeks prior to presentation but thought it would pass and thus continued to go to work and then developed chills and subjective fevers, and progressive shortness of breath for which he had a home covid test the day before presentation that was negative, and on the morning of presentation when he was short of breath at rest, he went to urgent care where he tested negative for covid but was noted to be hypoxemic to 88% on room air at rest and was directed to the ED where he eventually tested positive for covid-19 and was had a fever to 103.4 and hypoxemic and was saturating 92% on 4L NC. HOSPITAL COURSE: CXR revealed bilateral patchy infiltrates without effusions, troponin was negative, EKG showed NSR, WBC was 14, Hgb 14.9, platelets 217, na 135, K 4, BUN 26, Cr 1.48, lactic acid 1.9, LDH 438, DDimer 1951, CRP 12.4. He denied cara chest pain at this time or pleurisy but reports SOB even at rest. He reported poor PO and a poor appetite without emesis or diarrhea. He was admitted to medicine for covid-19 PNA with c/f superimposed CAP. He was treated with remdesevir, dexamethasone, baracitinib and empiric levaquin for potential superimposed CAP. CTA was eventually done and showed no PE. His course was c/b transient acute worsening of hypoxemia with rising oxygen requirements that eventually improved. He is now back on room air and is now being discharged home with instruction to self-isolate until resolution of all symptoms, mask and continue ASA 81 for the next month with PRN albuterol and mucinex. DISCHARGE MEDICATIONS: Please see below. ALLERGIES: Please see below. PHYSICAL EXAMINATION ON DISCHARGE: VITAL SIGNS: Please see below. GENERAL APPEARANCE: NAD, mildly tachypneic HEENT: NCAT, EOMI, MMM CARDIOVASCULAR: RRR, no m/r/g LUNGS: CTAB, no wheezing or crackles, breathing comfortably on room air ABDOMEN: Obese, soft, normoactive bowel sounds, NTND EXTREMITIES: WWP, no LE edema NEUROLOGICAL: CN 3-12 intact, 5/5 strength in bilateral upper and lower extremities, nonfocal examination PSYCHIATRIC: AOx3 LABORATORY DATA: Please see below. IMAGING: CTA chest: Pulmonary arteries: Normal. No pulmonary emboli. Aorta: Unremarkable. No aortic aneurysm. No aortic dissection. Lungs: Diffuse ground-glass opacities in bilateral lungs consistent with patient's history of COVID-19 infection. Pleural spaces: Unremarkable. No pneumothorax. No pleural effusion. Heart: Unremarkable. No cardiomegaly. No pericardial effusion. Lymph nodes: Unremarkable. No enlarged lymph nodes. Gallbladder and bile ducts: Cholelithiasis. Bones/joints: Unremarkable. No acute fracture. Soft tissues: Unremarkable. IMPRESSION: No pulmonary embolism. Ground-glass opacities in bilateral lungs consistent with patient's history of COVID-19 infection. CXR: The technique utilized in obtaining the radiograph has magnified the cardiac silhouette and accentuated the interstitial markings. Cardiomediastinal silhouette is unchanged. The heart is not enlarged. New patchy bilateral interstitial and airspace opacities are now present. The pleural angles are sharp there is no change in the osseous structures. IMPRESSION: Lung field opacities consistent with pneumonia. PROGNOSIS: Good ACTIVITY: As tolerated. DIET: regular DISCHARGE PLAN: ASA 81 for 1 month, PRN albuterol and mucinex. PCP follow up within 1 week. Continue self isolation, masking and hand hygiene until all symptoms resolve. DISPOSITION: Home DISCHARGE INSTRUCTIONS: ASA 81 for 1 month, PRN albuterol and mucinex. PCP follow up within 1 week. Continue self isolation, masking and hand hygiene until all symptoms resolve. ITEMS TO FOLLOWUP ON ON OUTPATIENT: Resolution of Covid-19 PNA DISCHARGE CONDITION: Stable TIME SPENT ON DISCHARGE: 40 minutes. Vital Signs/I&Os Vital Signs Date Time Temp Pulse Resp B/P (MAP) Pulse Ox O2 Delivery O2 Flow Rate FiO2 03/18/21 08:00 96.0 70 22 109/64 (79) 90 Room Air 03/18/21 04:00 1.0 I&O- Last 24 Hours up to 6 AM 03/18/21 06:00 Intake Total 690 ml Balance 690 ml Laboratory Data Labs 24H Laboratory Tests 2 03/17/21 16:01: 03/18/21 07:11: Immature Granulocyte % (Auto) 1.5, Neutrophils (%) (Auto) 63.8, Lymphocytes (%) (Auto) 31.1, Monocytes (%) (Auto) 3.5, Eosinophils (%) (Auto) 0.0, Basophils (%) (Auto) 0.1, Neutrophils # (Auto) 8.9H, Lymphocytes # (Auto) 4.3, Monocytes # (Auto) 0.5, Eosinophils # (Auto) 0.0, Basophils # (Auto) 0.0, Nucleated Red Blood Cells % (auto) 0.0, Prothrombin Time 15.1H, Prothromb Time International Ratio 1.14, Activated Partial Thromboplast Time 25.4, Fibrinogen 529H, Anion Gap 11, Glomerular Filtration Rate > 60.0, Calcium Level 8.5L, Magnesium Level 2.3, Ferritin 994H, Total Bilirubin 0.6, Direct Bilirubin 0.2, Aspartate Amino Transf (AST/SGOT) 45H, Alanine Aminotransferase (ALT/SGPT) 57, Alkaline Phosphatase 55, Lactate Dehydrogenase 353H, Total Creatine Kinase 115, Troponin I < 0.02, JL-Ajv-F-Type Natriuretic Peptide 202H, Total Protein 5.8L, Albumin 2.4L, Albumin/Globulin Ratio 0.7 CBC/BMP Laboratory Tests 03/18/21 07:11 Microbiology Microbiology 03/14/21 Respiratory Virus Panel (PCR) ([facility]) - Final, Complete SARS-CoV-2 (COVID 19) 03/14/21 Blood Culture - Preliminary, Resulted No Growth after 72 hours. All specime... 03/14/21 Blood Culture - Preliminary, Resulted No Growth after 72 hours. All specime... Discharge Medications Scheduled Aspirin (Aspirin EC) 81 Mg Tablet.dr, 81 MG PO DAILY Guaifenesin (Mucinex) 600 Mg Tab.er.12h, 1 TAB PO BID for cough [Bee Pollen/Acv] , 2 CAP PO TID, (Reported) W/ APPLE CIDER VINEGAR Scheduled PRN Albuterol Sulfate (Ventolin Hfa) 18 Gm Hfa.aer.ad, 2 PUFF INH Q4H PRN for WHEEZING Allergies Coded Allergies: No Known Allergies (Unverified , 01/06/14) LIZA TORRES MD Mar 18, 2021 09:53
== END 2021-03-18 12:30 | disposition home or self-care (01) | DRG 137 ==
LOC: M ED 14:14 → M ED INP 18:10 → ENRESERV 03-15 00:04 → M 4MAIN 03-15 00:40
PROVIDERS: ADMIT Internal Medicine; ATTEND Internal Medicine
PROC: XW033E5 Introduction of Remdesivir Anti-infective into Peripheral Vein, Percutaneous Approach, New Technology Group 5 (ICD-10-PCS; principal; 2021-03-14)
PROC: 3E0333Z Introduction of Anti-inflammatory into Peripheral Vein, Percutaneous Approach (ICD-10-PCS; 2021-03-14)
DX: U07.1 COVID-19 (principal); J96.01 Acute respiratory failure with hypoxia; J12.82 Pneumonia due to coronavirus disease 2019; N17.9 Acute kidney failure, unspecified; E66.9 Obesity, unspecified; Z91.030 Bee allergy status; Z68.32 Body mass index [BMI] 32.0-32.9, adult

== ENCOUNTER 2021-04-11 07:37 | Emergency (ER) | payer BC ==
[~2021-04-11] VITALS: Ht 180.3 cm; Wt 104.5 kg
[~2021-04-11 07:37] MED LIST changes: +ASPI-551 PO; -BARICITINIB 2MG TABLET (OLUMIANT) FOR EUA PO SCH; +BEE POLLEN PO; +MUCI600T31 PO; +VENTAER INH; +[UNRECOGNIZED DRUG - OTHER] PO
[2021-04-11] MEDS ORDERED: OXYMETAZOLINE 0.05% NASAL SPRAY (AFRIN) ONE (08:00)
[2021-04-11] MEDS ORDERED: SILVER NITRATE APPLICATOR TOP ONE (08:20)
[2021-04-11 09:29] VITALS: BP 156/90
== END 2021-04-11 09:29 | disposition home or self-care (01) ==
LOC: M ED 07:37
DX: R04.0 Epistaxis (principal); Z86.16 Personal history of COVID-19; Z79.82 Long term (current) use of aspirin

== ENCOUNTER → 2021-09-21 | Outpatient (CLI) | payer BC | LOC: M LABSMTC 09:02 | PROVIDERS: ATTEND Anesthesiology | DX: Z01.812 Encounter for preprocedural laboratory examination (principal); Z20.822 Contact with and (suspected) exposure to COVID-19 ==

== ENCOUNTER 2021-09-26 06:45 | Day surgery (SDC) | payer BC ==
[~2021-09-26] VITALS: Ht 180.3 cm; Wt 106.6 kg
[~2021-09-26 06:45] MED LIST changes: +LIDOCAINE 2% 100MG/5ML SDV (FOR ANES.) As Ordered ONE; +NS 1,000 ML IV ONE; +propofoL 200 MG/20 ML VIAL As Ordered ONE
[2021-09-26 08:43] VITALS: BP 139/79
== END 2021-09-26 08:47 | disposition home or self-care (01) ==
LOC: M OPP 06:45
PROVIDERS: ATTEND Internal Medicine Gastroenterology
DX: Z12.11 Encounter for screening for malignant neoplasm of colon (principal); Z86.010 Personal history of colon polyps; Z80.0 Family history of malignant neoplasm of digestive organs; D12.2 Benign neoplasm of ascending colon; K57.30 Diverticulosis of large intestine without perforation or abscess without bleeding; K64.0 First degree hemorrhoids; Z85.46 Personal history of malignant neoplasm of prostate

== ENCOUNTER → 2022-02-18 | Outpatient (CLI) | payer BC ==
[~2022-02-18] MED LIST changes: -LIDOCAINE 2% 100MG/5ML SDV (FOR ANES.) As Ordered ONE; -NS 1,000 ML IV ONE; -propofoL 200 MG/20 ML VIAL As Ordered ONE
== END ==
LOC: M PLALAB 10:27
PROVIDERS: ATTEND Urology
DX: C61 Malignant neoplasm of prostate (principal)

== ENCOUNTER 2022-10-24 13:42 | Emergency (ER) | payer BC, MEDICARE ==
[~2022-10-24] VITALS: Ht 180.3 cm; Wt 111.4 kg
[2022-10-24] MEDS ORDERED: KETOROLAC 30 MG/ML 1ML VIAL IV ONE (14:55)
[2022-10-24 15:48] LABS: BASO % 0.2 % (0.0-1.0); EOS % 0.1 % (0.0-3.0); HEMATOCRIT 46.3 % (42.0-52.0); HEMOGLOBIN 15.3 g/dl (13.5-17.5); LYMPH # 1.5 10^3/uL (1.5-5.0); LYMPH % 18.4 % (24.0-44.0); MEAN CORPUSCULAR HEMOGLOBIN 27.2 pg (27.0-33.0); MEAN CORPUSCULAR VOLUME 82.4 fl (80.0-96.0); MONO # 0.5 10^3/uL (0.0-0.8); MONO % 5.5 % (2.0-8.0); NEUTROPHILS # 6.2 10^3/uL (1.5-8.5); NEUTROPHILS % 75.3 % (36.0-66.0); PLATELET COUNT, AUTOMATED 181 10^3/uL (150-450); RED BLOOD COUNT 5.62 10^6/uL (4.30-6.10); WHITE BLOOD COUNT 8.2 10^3/uL (4.0-10.0)
[2022-10-24] MEDS ORDERED: diazePAM 10MG/2ML SYRINGE IV ONE (15:50)
[2022-10-24] MEDS ORDERED: NS 1,000 ML IV ONE (15:50)
[2022-10-24 16:03] VITALS: BP 138/81; TEMP 97.8; O2SAT 98
[2022-10-24 16:17] LABS: APPEARANCE, URINE HAZY (CLEAR); BACTERIA, URINE AUTO NEGATIVE (NEGATIVE); BILIRUBIN, URINE AUTO NEGATIVE (NEGATIVE); BLOOD, URINE BLOOD 1+ (NEGATIVE); COLOR, URINE AMBER (YELLOW); GLUCOSE, URINE (UA) AUTO 1+ mg/dL (NEGATIVE); KETONE, URINE AUTO TRACE mg/dL (NEGATIVE); LEUKOCYTE ESTERASE, URINE AUTO NEGATIVE (NEGATIVE); MUCUS, URINE SMALL (NEGATIVE); NITRITE, URINE AUTO NEGATIVE (NEGATIVE); PROTEIN, URINE AUTO 2+ mg/dL (NEGATIVE); RBC, URINE AUTO 1 /HPF (0-3); SPECIFIC GRAVITY URINE AUTO 1.027 (1.002-1.035); SQUAMOUS EPITHELIAL CELL UR AU 0 /HPF (0-6); WBC, URINE AUTO 4 /HPF (0-3)
[2022-10-24] MEDS ORDERED: METH-1164 PO (16:44)
[2022-10-24] MEDS ORDERED: TRAM50TA2 PO (16:44)
== END 2022-10-24 17:00 | disposition home or self-care (01) ==
LOC: M ED 13:42
DX: M51.26 Other intervertebral disc displacement, lumbar region (principal); R31.9 Hematuria, unspecified; E11.9 Type 2 diabetes mellitus without complications; Z87.442 Personal history of urinary calculi; Z85.46 Personal history of malignant neoplasm of prostate
CPT/HCPCS: 72131; 80047; 81001; 85025; 96374; 96375; 99284; J1885; J3360

== ENCOUNTER → 2022-10-29 | Outpatient (REF) | payer BC ==
[~2022-10-29] MED LIST changes: +METH-1164 PO; +TRAM50TA2 PO
[2022-10-30 16:15] LABS: ATYPICAL LYMPH 3 % (0-5); LYMPHOCYTES 8 % (16-44); MONOCYTES 1 % (0-5); NEUTROPHILS 88 % (28-66); PLATELET ESTIMATE NORMAL (NORMAL)
== END ==
LOC: M LAB REF 16:32
PROVIDERS: ATTEND Nurse Practitioner Family
DX: M79.672 Pain in left foot (principal)

== ENCOUNTER → 2022-10-30 | Outpatient (CLI) | payer BC | LOC: M RAD 13:59 | PROVIDERS: ATTEND Nurse Practitioner Family | DX: N20.0 Calculus of kidney (principal) ==

== ENCOUNTER → 2022-11-08 | Outpatient (CLI) | payer BC | LOC: M WUC 15:01 | PROVIDERS: ATTEND Nurse Practitioner Family | DX: R94.5 Abnormal results of liver function studies (principal) ==

== ENCOUNTER → 2022-11-11 | Outpatient (REF) | payer BC | LOC: M LAB REF 17:21 | PROVIDERS: ATTEND Nurse Practitioner Family | DX: M79.671 Pain in right foot (principal) ==

== ENCOUNTER → 2022-12-09 | Outpatient (REF) | payer BC ==
[2022-12-09 17:08] LABS: HEMATOCRIT 29.5 % (42.0-52.0); HEMOGLOBIN 9.2 g/dl (13.5-17.5); MEAN CORPUSCULAR HEMOGLOBIN 25.4 pg (27.0-33.0); MEAN CORPUSCULAR HGB CONC 31.2 g/dl (32.0-36.5); MEAN CORPUSCULAR VOLUME 81.5 fl (80.0-96.0); PLATELET COUNT, AUTOMATED 449 10^3/uL (150-450); RED BLOOD COUNT 3.62 10^6/uL (4.30-6.10); WHITE BLOOD COUNT 8.6 10^3/uL (4.0-10.0)
[2022-12-09 17:29] LABS: ERYTHROCYTE SEDIMENTATION RATE 75 mm/hr (0-20)
[2022-12-09 17:41] LABS: CPK CREATINE PHOSPHOKINASE 35 U/L (46-171)
[2022-12-09 17:42] LABS: ALBUMIN 2.4 G/DL (3.2-5.2); ALKALINE PHOSPHATASE 142 U/L (46-116); ALT/SGPT 16 U/L (7.0-40); AST/SGOT 12 U/L (<34); BILIRUBIN,TOTAL 0.4 MG/DL (0.3-1.2); BLOOD UREA NITROGEN 12 MG/DL (9-23); CALCIUM LEVEL 8.5 MG/DL (8.3-10.6); CARBON DIOXIDE LEVEL 26 MMOL/L (20-31); CHLORIDE LEVEL 104 MMOL/L (98-107); CREATININE FOR GFR 0.94 MG/DL (0.70-1.30); GLOMERULAR FILTRATION RATE > 60.0 (>42); GLUCOSE, FASTING 143 MG/DL (74-106); POTASSIUM SERUM 4.1 MMOL/L (3.5-5.1); SODIUM LEVEL 140 MMOL/L (136-145); TOTAL PROTEIN 5.7 G/DL (5.7-8.2)
== END ==
LOC: M LAB REF 16:35
DX: G06.2 Extradural and subdural abscess, unspecified (principal)

== ENCOUNTER → 2023-01-20 | Outpatient (REF) | payer BC ==
[~2023-01-20] MED LIST changes: +BACL5TAB2 PO; +CEFA2INJ4 IV; +FERR325T19 PO; +FURO40TA2 PO; +OXYC-517 PO; +POTA-151 PO; +SENN-83 PO; +med rec comment
[2023-01-20 17:50] LABS: HEMOGLOBIN 7.3 g/dl (13.5-17.5); MEAN CORPUSCULAR HEMOGLOBIN 24.8 pg (27.0-33.0); MEAN CORPUSCULAR HGB CONC 29.2 g/dl (32.0-36.5); PLATELET COUNT, AUTOMATED 267 10^3/uL (150-450); RED BLOOD COUNT 2.94 10^6/uL (4.30-6.10); WHITE BLOOD COUNT 8.2 10^3/uL (4.0-10.0)
[2023-01-20 18:09] LABS: ALBUMIN 2.3 G/DL (3.2-5.2); ALKALINE PHOSPHATASE 101 U/L (46-116); ALT/SGPT 12 U/L (7.0-40); AST/SGOT 15 U/L (<34); BILIRUBIN,TOTAL 0.5 MG/DL (0.3-1.2); BLOOD UREA NITROGEN 17 MG/DL (9-23); CALCIUM LEVEL 7.8 MG/DL (8.3-10.6); CARBON DIOXIDE LEVEL 30 MMOL/L (20-31); CHLORIDE LEVEL 108 MMOL/L (98-107); CPK CREATINE PHOSPHOKINASE 38 U/L (46-171); CREATININE FOR GFR 0.92 MG/DL (0.70-1.30); GLOMERULAR FILTRATION RATE > 60.0 (>42); GLUCOSE, FASTING 94 MG/DL (74-106); SODIUM LEVEL 147 MMOL/L (136-145); TOTAL PROTEIN 5.3 G/DL (5.7-8.2)
[2023-01-20 18:42] LABS: ERYTHROCYTE SEDIMENTATION RATE 38 mm/hr (0-20)
== END ==
LOC: M LAB REF 16:16
PROVIDERS: ATTEND Internal Medicine Infectious Disease
DX: G06.2 Extradural and subdural abscess, unspecified (principal)

== ENCOUNTER 2023-02-03 15:50 | Inpatient (IN) | payer BC, MEDICARE ==
[~2023-02-03 15:50] MED LIST changes: +CEFA1SOL IV; +CEFA2VIA IV; +FURO20TA2 PO; +GABA-1171 PO; +LIDO5TD TD; +MED REC COMMENT; +MERO1VIA3 IV; +NIFE15CA PO; +VANC500P IV
[2023-02-03 20:50] VITALS: BP 125/86; TEMP 98.2; O2SAT 96
[2023-02-03] MEDS ORDERED: ACETAMINOPHEN TAB 650MG DOSE (2X325MG) PO PRN (21:40)
[2023-02-03] MEDS ORDERED: oxyCODONE 5MG TAB PO PRN ×2 (21:45)
[2023-02-03] MEDS ORDERED: ONDANSETRON 4MG ORAL DISINTEGRATING TAB PO PRN (21:45)
[2023-02-03] MEDS ORDERED: BACLOFEN 10 MG TAB PO ONE (23:00)
[2023-02-03] MEDS ORDERED: FURO40TA2 PO (23:24)
[2023-02-03] MEDS ORDERED: FERR325T19 PO (23:24)
[2023-02-03] MEDS ORDERED: HOME MED LIST COMPLETE! XX SCH (23:25)
[2023-02-03] MEDS: LevoFLOXacin 500 MG TABLET PO SCH (23:40)
[2023-02-03] MEDS: ceFAZolin SOD 2 GM in IV 1 EA IV SCH (23:40)
[2023-02-04 04:58] VITALS: BP 119/66; TEMP 98.1; O2SAT 97
[2023-02-04 05:51] LABS: HEMATOCRIT 26.4 % (42.0-52.0); HEMOGLOBIN 8.2 g/dl (13.5-17.5); MEAN CORPUSCULAR HEMOGLOBIN 25.8 pg (27.0-33.0); MEAN CORPUSCULAR HGB CONC 31.1 g/dl (32.0-36.5); PLATELET COUNT, AUTOMATED 244 10^3/uL (150-450); RED BLOOD COUNT 3.18 10^6/uL (4.30-6.10); WHITE BLOOD COUNT 5.5 10^3/uL (4.0-10.0)
[2023-02-04 06:16] LABS: BLOOD UREA NITROGEN 12 MG/DL (9-23); CALCIUM LEVEL 8.2 MG/DL (8.3-10.6); CARBON DIOXIDE LEVEL 29 MMOL/L (20-31); CHLORIDE LEVEL 106 MMOL/L (98-107); GLOMERULAR FILTRATION RATE > 60.0 (>42); GLUCOSE, FASTING 94 MG/DL (74-106); MAGNESIUM LEVEL 1.9 MG/DL (1.8-2.4); POTASSIUM SERUM 3.2 MMOL/L (3.5-5.1); SODIUM LEVEL 140 MMOL/L (136-145)
[2023-02-04] MEDS: ceFAZolin SOD 2 GM in IV 1 EA IV SCH ×3 (06:33→22:24)
[2023-02-04] MEDS: SODIUM CHLORIDE 0.9% INJ 10 ML SYR IV SCH ×2 (06:33→16:54)
[2023-02-04] MEDS: SODIUM CHLORIDE 0.9% INJ 10 ML SYR IV PRN (07:47)
[2023-02-04] MEDS ORDERED: POTASSIUM CHLORIDE 10MEQ SR TABLET PO ONE (08:00)
[2023-02-04] MEDS ORDERED: BACLOFEN 5MG PER 1/2 TABLET PO SCH (09:00)
[2023-02-04] MEDS: FUROSEMIDE 40 MG TAB PO SCH (09:31)
[2023-02-04] MEDS: SENNA 8.6 MG TAB (SENOKOT) PO SCH (09:31)
[2023-02-04] MEDS: FERROUS SULFATE 325MG TAB PO SCH (09:31)
[2023-02-04] MEDS: LACTOBACILLUS ACIDOPHILUS CAP (BACID) PO SCH ×2 (09:31→18:23)
[2023-02-04] MEDS: ENOXAPARIN 40MG/0.4ML SYRINGE (J1650 PER 10MG) SC SCH (09:31)
[2023-02-04] MEDS: BACLOFEN 10 MG TAB PO PRN ×2 (11:34→19:25)
[2023-02-04 14:00] VITALS: BP 117/71; TEMP 98.1; O2SAT 97
[2023-02-04] MEDS ORDERED: IRON SUCROSE 200 MG in NS 100 ML IV ONE (16:00)
[2023-02-04] MEDS: LevoFLOXacin 500 MG TABLET PO SCH (19:25)
[2023-02-04 20:55] VITALS: BP 138/76; TEMP 98.1; O2SAT 96
[2023-02-05] MEDS: BACLOFEN 10 MG TAB PO PRN ×2 (03:35→09:30)
[2023-02-05] MEDS: SODIUM CHLORIDE 0.9% INJ 10 ML SYR IV SCH (05:24)
[2023-02-05 06:23] LABS: BASO % 0.4 % (0.0-1.0); EOS # 0.1 10^3/uL (0.0-0.5); EOS % 1.7 % (0.0-3.0); HEMATOCRIT 28.9 % (42.0-52.0); HEMOGLOBIN 8.9 g/dl (13.5-17.5); LYMPH # 1.3 10^3/uL (1.5-5.0); MEAN CORPUSCULAR HEMOGLOBIN 25.9 pg (27.0-33.0); MEAN CORPUSCULAR HGB CONC 30.8 g/dl (32.0-36.5); MONO # 0.5 10^3/uL (0.0-0.8); MONO % 9.4 % (2.0-8.0); NEUTROPHILS # 3.5 10^3/uL (1.5-8.5); NEUTROPHILS % 64.3 % (36.0-66.0); PLATELET COUNT, AUTOMATED 275 10^3/uL (150-450); RED BLOOD COUNT 3.44 10^6/uL (4.30-6.10); WHITE BLOOD COUNT 5.4 10^3/uL (4.0-10.0)
[2023-02-05] MEDS: ceFAZolin SOD 2 GM in IV 1 EA IV SCH (06:44)
[2023-02-05 06:52] LABS: BLOOD UREA NITROGEN 12 MG/DL (9-23); CALCIUM LEVEL 8.4 MG/DL (8.3-10.6); CARBON DIOXIDE LEVEL 29 MMOL/L (20-31); CHLORIDE LEVEL 106 MMOL/L (98-107); CREATININE FOR GFR 0.85 MG/DL (0.70-1.30); GLOMERULAR FILTRATION RATE > 60.0 (>42); GLUCOSE, FASTING 94 MG/DL (74-106); MAGNESIUM LEVEL 1.9 MG/DL (1.8-2.4); POTASSIUM SERUM 3.4 MMOL/L (3.5-5.1); SODIUM LEVEL 142 MMOL/L (136-145)
[2023-02-05] MEDS ORDERED: LEVO1TAB39 PO (07:41)
[2023-02-05] MEDS: LACTOBACILLUS ACIDOPHILUS CAP (BACID) PO SCH (08:00)
[2023-02-05] MEDS: SENNA 8.6 MG TAB (SENOKOT) PO SCH (08:00)
[2023-02-05] MEDS: ENOXAPARIN 40MG/0.4ML SYRINGE (J1650 PER 10MG) SC SCH (08:00)
[2023-02-05] MEDS: FERROUS SULFATE 325MG TAB PO SCH (08:00)
[2023-02-05] MEDS: FUROSEMIDE 40 MG TAB PO SCH (08:00)
[2023-02-05] MEDS ORDERED: POTASSIUM CHLORIDE 10MEQ SR TABLET PO ONE ×2 (08:00→09:00)
[2023-02-05] MEDS: SODIUM CHLORIDE 0.9% INJ 10 ML SYR IV PRN (08:01)
== END 2023-02-05 12:08 | disposition home health service (06) | DRG 721 ==
LOC: M MSPAV 21:38
PROVIDERS: ADMIT Student in an Organized Health Care Education/Training Program; ATTEND Internal Medicine
DX: T81.41XA Infection following a procedure, superficial incisional surgical site, initial encounter (principal); G06.2 Extradural and subdural abscess, unspecified; D50.9 Iron deficiency anemia, unspecified; Z79.899 Other long term (current) drug therapy; M46.46 Discitis, unspecified, lumbar region; Y83.8 Other surgical procedures as the cause of abnormal reaction of the patient, or of later complication, without mention of misadventure at the time of the procedure

== ENCOUNTER → 2023-02-10 | Outpatient (REF) | payer BC, MEDICARE ==
[~2023-02-10] MED LIST changes: +LEVO1TAB39 PO
[2023-02-10 16:57] LABS: CPK CREATINE PHOSPHOKINASE 25 U/L (46-171)
[2023-02-10 16:58] LABS: ALBUMIN 2.7 G/DL (3.2-5.2); ALKALINE PHOSPHATASE 103 U/L (46-116); ALT/SGPT < 9 U/L (7.0-40); AST/SGOT 11 U/L (<34); BILIRUBIN,TOTAL 0.5 MG/DL (0.3-1.2); BLOOD UREA NITROGEN 14 MG/DL (9-23); CALCIUM LEVEL 8.6 MG/DL (8.3-10.6); CARBON DIOXIDE LEVEL 29 MMOL/L (20-31); CHLORIDE LEVEL 101 MMOL/L (98-107); CREATININE FOR GFR 0.93 MG/DL (0.70-1.30); GLOMERULAR FILTRATION RATE > 60.0 (>42); GLUCOSE, FASTING 94 MG/DL (74-106); POTASSIUM SERUM 3.2 MMOL/L (3.5-5.1); SODIUM LEVEL 137 MMOL/L (136-145); TOTAL PROTEIN 5.4 G/DL (5.7-8.2)
[2023-02-10 17:09] LABS: HEMATOCRIT 27.7 % (42.0-52.0); HEMOGLOBIN 8.6 g/dl (13.5-17.5); MEAN CORPUSCULAR HEMOGLOBIN 26.1 pg (27.0-33.0); MEAN CORPUSCULAR VOLUME 84.2 fl (80.0-96.0); PLATELET COUNT, AUTOMATED 245 10^3/uL (150-450); RED BLOOD COUNT 3.29 10^6/uL (4.30-6.10); WHITE BLOOD COUNT 5.1 10^3/uL (4.0-10.0)
[2023-02-10 17:24] LABS: ERYTHROCYTE SEDIMENTATION RATE 53 mm/hr (0-20)
== END ==
LOC: M LAB REF 15:38
PROVIDERS: ATTEND Internal Medicine Infectious Disease
DX: G06.2 Extradural and subdural abscess, unspecified (principal)

== ENCOUNTER → 2023-02-17 | Outpatient (REF) | payer BC, MEDICARE ==
[2023-02-17 13:59] LABS: ALBUMIN 2.9 G/DL (3.2-5.2); ALKALINE PHOSPHATASE 99 U/L (46-116); ALT/SGPT < 9 U/L (7.0-40); AST/SGOT 12 U/L (<34); BILIRUBIN,TOTAL 0.4 MG/DL (0.3-1.2); BLOOD UREA NITROGEN 20 MG/DL (9-23); CALCIUM LEVEL 8.7 MG/DL (8.3-10.6); CARBON DIOXIDE LEVEL 29 MMOL/L (20-31); CHLORIDE LEVEL 104 MMOL/L (98-107); CREATININE FOR GFR 0.81 MG/DL (0.70-1.30); GLOMERULAR FILTRATION RATE > 60.0 (>42); GLUCOSE, FASTING 83 MG/DL (74-106); POTASSIUM SERUM 4.4 MMOL/L (3.5-5.1); SODIUM LEVEL 139 MMOL/L (136-145); TOTAL PROTEIN 5.6 G/DL (5.7-8.2)
== END ==
LOC: M LAB REF 12:22
PROVIDERS: ATTEND Internal Medicine
DX: N18.2 Chronic kidney disease, stage 2 (mild) (principal); E87.6 Hypokalemia

== ENCOUNTER → 2023-02-24 | Outpatient (REF) | payer BC, MEDICARE ==
[2023-02-24 18:28] LABS: HEMATOCRIT 30.3 % (42.0-52.0); HEMOGLOBIN 9.5 g/dl (13.5-17.5); MEAN CORPUSCULAR HEMOGLOBIN 26.2 pg (27.0-33.0); MEAN CORPUSCULAR HGB CONC 31.4 g/dl (32.0-36.5); MEAN CORPUSCULAR VOLUME 83.5 fl (80.0-96.0); PLATELET COUNT, AUTOMATED 314 10^3/uL (150-450); RED BLOOD COUNT 3.63 10^6/uL (4.30-6.10); WHITE BLOOD COUNT 5.7 10^3/uL (4.0-10.0)
[2023-02-25 01:57] LABS: ALBUMIN 3.2 G/DL (3.2-5.2); ALKALINE PHOSPHATASE 124 U/L (46-116); ALT/SGPT 10 U/L (7.0-40); AST/SGOT 14 U/L (<34); BILIRUBIN,DIRECT 0.1 MG/DL (<0.4); BILIRUBIN,TOTAL 0.3 MG/DL (0.3-1.2); BLOOD UREA NITROGEN 30 MG/DL (9-23); CALCIUM LEVEL 9.4 MG/DL (8.3-10.6); CARBON DIOXIDE LEVEL 26 MMOL/L (20-31); CHLORIDE LEVEL 102 MMOL/L (98-107); CREATININE FOR GFR 0.75 MG/DL (0.70-1.30); GLOMERULAR FILTRATION RATE > 60.0 (>42); GLUCOSE, FASTING 124 MG/DL (74-106); POTASSIUM SERUM 4.6 MMOL/L (3.5-5.1); SODIUM LEVEL 138 MMOL/L (136-145)
== END ==
LOC: M LAB REF 17:57
PROVIDERS: ATTEND Internal Medicine
DX: M46.26 Osteomyelitis of vertebra, lumbar region (principal); E87.6 Hypokalemia; D72.829 Elevated white blood cell count, unspecified; R17 Unspecified jaundice

== ENCOUNTER → 2023-02-24 | Outpatient (REF) | payer BC, MEDICARE | LOC: M LAB REF 17:56 | PROVIDERS: ATTEND Urology | DX: C61 Malignant neoplasm of prostate (principal) ==

== ENCOUNTER → 2023-02-28 | Outpatient (REF) | payer BC, MEDICARE | LOC: M LAB REF 13:26 | PROVIDERS: ATTEND Internal Medicine Infectious Disease | DX: G06.1 Intraspinal abscess and granuloma (principal) ==

== ENCOUNTER → 2023-03-25 | Outpatient (REF) | payer BC, MEDICARE ==
[2023-03-25 12:26] LABS: BASO % 0.4 % (0.0-1.0); EOS # 0.1 10^3/uL (0.0-0.5); HEMATOCRIT 36.7 % (42.0-52.0); HEMOGLOBIN 11.6 g/dl (13.5-17.5); LYMPH % 25.8 % (24.0-44.0); MEAN CORPUSCULAR HEMOGLOBIN 26.7 pg (27.0-33.0); MEAN CORPUSCULAR HGB CONC 31.6 g/dl (32.0-36.5); MEAN CORPUSCULAR VOLUME 84.6 fl (80.0-96.0); MONO # 0.5 10^3/uL (0.0-0.8); MONO % 6.7 % (2.0-8.0); NEUTROPHILS # 5.2 10^3/uL (1.5-8.5); NEUTROPHILS % 65.8 % (36.0-66.0); PLATELET COUNT, AUTOMATED 213 10^3/uL (150-450); RED BLOOD COUNT 4.34 10^6/uL (4.30-6.10); WHITE BLOOD COUNT 7.9 10^3/uL (4.0-10.0)
[2023-03-25 12:35] LABS: ERYTHROCYTE SEDIMENTATION RATE 8 mm/hr (0-20)
== END ==
LOC: M LAB REF 12:06
PROVIDERS: ATTEND Internal Medicine Infectious Disease
DX: G06.1 Intraspinal abscess and granuloma (principal)

== ENCOUNTER → 2023-11-10 | Outpatient (CLI) | payer BC | LOC: M RAD 11:35 | PROVIDERS: ATTEND Internal Medicine | DX: M79.89 Other specified soft tissue disorders (principal) ==

== ENCOUNTER → 2024-01-20 | Outpatient (CLI) | payer BC ==
[~2024-01-20] MED LIST changes: +SENN-187 PO; -SENN-83 PO
[2024-01-20 14:11] LABS: CREATININE FOR GFR 1.24 MG/DL (0.70-1.30); GLOMERULAR FILTRATION RATE > 60.0 (>42)
== END ==
LOC: M WUC 10:04
PROVIDERS: ATTEND Orthopaedic Surgery
DX: Z00.00 Encounter for general adult medical examination without abnormal findings (principal); M54.50 Low back pain, unspecified

== ENCOUNTER → 2024-02-25 | Outpatient (CLI) | payer BC | LOC: M PLALAB 09:00 | PROVIDERS: ATTEND Urology | DX: C61 Malignant neoplasm of prostate (principal) ==

== ENCOUNTER 2024-08-11 08:26 | Day surgery (SDC) | payer BC ==
[~2024-08-11] VITALS: Ht 180.3 cm; Wt 106.3 kg
[2024-08-11] MEDS ORDERED: propofoL 200 MG/20 ML VIAL As Ordered ONE (09:44)
[2024-08-11] MEDS ORDERED: LIDOCAINE 2% 100MG/5ML SDV (FOR ANES.) As Ordered ONE (09:46)
[2024-08-11 10:31] VITALS: TEMP 97.4
[2024-08-11 10:50] VITALS: BP 130/95; O2SAT 94
== END 2024-08-11 10:59 | disposition home or self-care (01) ==
LOC: M OPP 08:26
PROVIDERS: ATTEND Internal Medicine Gastroenterology
DX: D12.6 Benign neoplasm of colon, unspecified (principal); K57.30 Diverticulosis of large intestine without perforation or abscess without bleeding; K64.0 First degree hemorrhoids; Z80.0 Family history of malignant neoplasm of digestive organs; Z86.0100 Personal history of colon polyps, unspecified; Z91.041 Radiographic dye allergy status

== ENCOUNTER → 2024-12-23 | Outpatient (CLI) | payer BC | LOC: M RAD 12:51 | PROVIDERS: ATTEND Internal Medicine | DX: Z86.73 Personal history of transient ischemic attack (TIA), and cerebral infarction without residual deficits (principal); I65.23 Occlusion and stenosis of bilateral carotid arteries ==

== ENCOUNTER → 2025-02-21 | Outpatient (CLI) | payer BC | LOC: M WUC 09:07 | PROVIDERS: ATTEND Urology | DX: C61 Malignant neoplasm of prostate (principal) ==